=== PATIENT | male | born 1950 | race Hispanic/Latino ===

== ENCOUNTER 2016-11-16 19:22 | Emergency (ER) | payer MEDICARE, OTHER ==
[2016-11-16 19:22] VITALS: BMI 32.8
[2016-11-16 19:56] VITALS: BP 142/60; PULSE 72; RESP 20; TEMP 98.2; O2SAT 97
[2016-11-16] MEDS ORDERED: Bacitracin 500 Units/gm Oint Foilpak UD ONE (21:28)
[2016-11-16] MEDS ORDERED: Bacitracin 500 Units/gm Oint Foilpak UD TOP ONE (21:33)
--- NOTE | 2016-11-16 21:36 | C.PDOC ---
History Of Present Illness 66 yr old male presents to the ER with complaints of left 3rd finger swelling which started yesterday. Patient notes that he cut his nails last week and believes that started the swelling. Patient reports history of diabetes, reports no change in sugar level, reports average is 150. Patient took Motrin and tramadol for the pain [employer] DES[employer]. Patient denies direct trauma, fever, arm pain, hand pain, weakness or numbness. 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) History/Exam Limitations: language barrier (Brazilian ) Onset/Duration Of Symptoms: Days (1) Past Medical History Reviewed: Historical Data, Nursing Documentation, Vital Signs Vital Signs: Last Vital Signs Temp 98.2 F 11/16/16 19:54 Pulse 72 11/16/16 19:54 Resp 20 11/16/16 21:43 BP 142/60 11/16/16 19:54 Pulse Ox 97 11/16/16 21:47 - Medical History PMH: Diabetes, HTN, Hypercholesterolemia, Peripheral Edema, Seizures (does not remember), Sleep Apnea Family History: States: No Known Family Hx - Social History Hx Alcohol Use: No Hx Substance Use: No Review Of Systems Except As Marked, All Systems Reviewed And Found Negative. Constitutional: Negative for: Fever Musculoskeletal: Positive for: Other (Swelling to the left 3rd finger). Negative for: Arm Pain, Hand Pain Neurological: Negative for: Weakness, Numbness Physical Exam - Physical Exam Appears: Well, Non-toxic, No Acute Distress Skin: Warm, Dry Head: Atraumatic, Normacephalic Eye(s): bilateral: Normal Inspection, EOMI Nose: Normal Oral Mucosa: Moist Chest: Symmetrical, No Tenderness Respiratory: No Accessory Muscle Use Extremity: Normal ROM, Tenderness, Capillary Refill (<2 sec), Other (Left Hand, 3rd Finger - Swelling, erythema and tenderness to the ulnar aspect of the cuticle, central fluctuance. ) Pulses: Left Radial: Normal Neurological/Psych: Oriented x3, Normal Speech, Normal Motor, Normal Sensation ED Course And Treatment O2 Sat by Pulse Oximetry: 97 Progress Note: Patient instructed to follow up for a wound check up in 2 days. - Incision & Drainage Of Abscess Anesthesia: Lidocaine 1% Prep Used: Sterile Water, Betadine Procedure: Incised W/Scalpel Blade#: (11), Drained Pus (coopies amount of purulent drainage. ), Irrigated Cavity W/Saline Medical Decision Making Medical Decision Making: PLAN: * Keflex PO Disposition - Disposition Disposition: HOME/ ROUTINE Disposition Time: 21:34 Condition: STABLE Additional Instructions: Vaya a wright mdico o la clnica en 2-5 warren sin falta, para mas evaluacin. [employer] los medicamentos ibrahima indicado. Volver a la sky de emergencia en cualquier momento si los sntomas persisten o empeoran. Prescriptions: Bacitracin OINT 1 applic TP Q6 #1 tube Cephalexin [cephalexin] 500 mg PO BID #14 cap Instructions: Paronychia (ED) Print Language: JAPANESE - Clinical Impression Clinical Impression: Paronychia - PA / VP PRODUCT / Resident Statement MD/DO has reviewed & agrees with the documentation as recorded. - Scribe Statement The provider has reviewed the documentation as recorded by the Scribe Sharmila Lopez All medical record entries made by the Scribe were at my direction and personally dictated by me. I have reviewed the chart and agree that the record accurately reflects my personal performance of the history, physical exam, medical decision making, and the department course for this patient. I have also personally directed, reviewed, and agree with the discharge instructions and disposition.
== END 2016-11-16 21:43 | disposition home or self-care (01) ==
LOC: C.ER 19:22
DX: L03.012 Cellulitis of left finger (principal)

== ENCOUNTER 2017-06-06 20:52 | Inpatient (IN) | payer MEDICARE, OTHER ==
[2017-06-06 20:52] VITALS: BMI 32.8
--- NOTE | 2017-06-06 21:17 | C.PDOC ---
History Of Present Illness 66 year old male presents to the ER after feeling dizzy at home while eating and syncopized for approximately 3 minutes. Denies tremors or seizure activity. Patient reports dizziness has resolved since. Chief Complaint (Nursing): Dizziness/Lightheaded History Per: Patient History/Exam Limitations: no limitations Current Symptoms Are (Timing): Gone Number Of Syncopal Episodes: 1 Activity At Onset Of Symptoms: Walking Associated Symptoms Preceding Syncopal Episode: Lightheadedness, Other ( Dizziness) Seizure Or Post-ictal Symptoms: None Possible Causative Factor(s): Vertigo Fall Associated With With Symptoms: No Injury As Result Of Fall Severity: Moderate Pain Scale Rating Of: 0 Recent travel outside of the [place]: No Additional History Per: Patient - Symptoms Of CVA Associated Symptoms: denies: Impaired Speech, Seizure Activity, New Vision Deficit(Left), New Vision Deficit(Right), Decreased Ability To Walk, New Confusion Recent Aspirin Use: No Current Coumadin Use?: No Recent Head Trauma: No Past Medical History Reviewed: Historical Data, Nursing Documentation, Vital Signs Vital Signs: Last Vital Signs Temp 97.9 F 06/07/17 00:03 Pulse 81 06/07/17 00:03 Resp 22 06/07/17 00:03 BP 156/92 H 06/07/17 00:03 Pulse Ox 97 06/07/17 00:55 - Medical History PMH: Diabetes, HTN, Hypercholesterolemia, Peripheral Edema, Seizures (does not remember), Sleep Apnea Surgical History: No Surg Hx Family History: States: Unknown Family Hx - Social History Hx Alcohol Use: Yes Hx Substance Use: No - Immunization History Hx Tetanus Toxoid Vaccination: No Hx Influenza Vaccination: Yes Hx Pneumococcal Vaccination: Yes Review Of Systems Constitutional: Negative for: Fever, Chills Neurological: Positive for: Dizziness, Other (Syncope) Physical Exam - Physical Exam Appears: Non-toxic, No Acute Distress, Other (Alert, conscious) Skin: Normal Color, Warm, Dry Head: Atraumatic, Normacephalic Eye(s): bilateral: Normal Inspection, PERRL, EOMI Oral Mucosa: Moist Neck: Normal, Supple Chest: Symmetrical Cardiovascular: Rhythm Regular Respiratory: Normal Breath Sounds, No Rales, No Rhonchi, No Wheezing Gastrointestinal/Abdominal: Soft, No Tenderness Extremity: Normal ROM (x4) Neurological/Psych: Oriented x3, Normal Speech ED Course And Treatment - Laboratory Results Result Diagrams: 06/06/17 21:36 06/06/17 21:36 ECG: Interpreted By Me, Viewed By Me ECG Rhythm: Sinus Rhythm, ST/T Changes ECG Interpretation: No Acute Changes, Abnormal Interpretation Of ECG: NSR, IVCD< T wave abnormality-lateral leads Rate From EC O2 Sat by Pulse Oximetry: 97 Pulse Ox Interpretation: Normal Progress Note: CT head, EKG, blood work, and urinalysis ordered. NIHSS Stroke Scale - Date/Time Evaluation Performed Date Performed: 06/06/17 Time Performed: :17 When Was NIHSS Performed: Baseline - How Severe is the Stoke Level of Consciousness: 0=Alert LOC to Questions: 0=Both comments correct LOC to commands: 0=Obeys both correctly Best Gaze: 0=Normal Visual: 0=No visual loss Facial: 0=Normal Motor Arm - Left: 0=No drift Motor Arm - Right: 0=No drift Motor Leg - Left: 0=No drift Motor Leg - Right: 0=No drift Limb Ataxia: 0=Absent Sensory: 0=Normal Best Language: 0=No aphasia Dysarthia: 0=Normal articulation Extinction & Inattention (Neglect): 0=Normal, no object Score: 0 Severity Of Stroke: 0= No Stroke Disposition Discussed With : Santi Lisa Doctor Will See Patient In The: Hospital Counseled Patient/Family Regarding: Diagnosis - Disposition Disposition: HOME/ ROUTINE Disposition Time: 22:48 Condition: STABLE - POA Present On Arrival: None - Clinical Impression Clinical Impression: Syncope - Scribe Statement The provider has reviewed the documentation as recorded by the Scribjamila Pike All medical record entries made by the Jasonibjamila were at my direction and personally dictated by me. I have reviewed the chart and agree that the record accurately reflects my personal performance of the history, physical exam, medical decision making, and the department course for this patient. I have also personally directed, reviewed, and agree with the discharge instructions and disposition.
[2017-06-06 21:48] LABS: BASO # 0.1 K/uL (0.0-0.2); BASO % 0.9 % (0.0-2.0); EOS # 0.2 K/uL (0.0-0.7); EOS % 3.2 % (0.0-4.0); HEMATOCRIT 40.6 % (35.0-51.0); LYMPH # 1.8 K/uL (1.0-4.3); LYMPH % 28.8 % (20.0-40.0); MEAN CELL VOLUME 94.7 fL (80.0-94.0); MEAN CORPUSCULAR HGB CONC 33.7 g/dL (33.0-37.0); MEAN PLATELET VOLUME 8.8 fL (7.2-11.7); MONO # 0.5 K/uL (0.0-0.8); MONO % 8.9 % (0.0-10.0); NRBC % 0.2 % (0.0-2.0); WHITE BLOOD COUNT 6.2 K/uL (4.8-10.8)
[2017-06-06 22:03] LABS: CALCIUM 8.6 mg/dl (8.6-10.4); GFR AFRICAN-AMERICAN > 60; GLUCOSE,RANDOM 183 mg/dL (75-110)
[2017-06-06 22:08] LABS: ALB/GLOB RATIO 1.1 (1.0-2.1); ALKALINE PHOSPHATASE 57 U/L (38-126); ALT/SGPT 32 U/L (21-72); AST/SGOT 43 U/L (17-59); BILIRUBIN,TOTAL 1.1 mg/dL (0.2-1.3); BLOOD UREA NITROGEN 14 mg/dL (9-20); CARBON DIOXIDE 24 mmol/L (22-30); CHLORIDE 98 mmol/L (98-107); POTASSIUM 4.4 mmol/L (3.6-5.2); SODIUM 136 mmol/L (132-148); TOTAL PROTEIN 8.4 g/dL (6.3-8.3)
--- NOTE | 2017-06-06 22:28 | CT ---
EXAM: CT Head Without Intravenous Contrast CLINICAL HISTORY: 66 years old, male; Condition or disease; Headache; Headache not specified TECHNIQUE: Axial computed tomography images of the head/brain without intravenous contrast. All CT scans at this facility use one or more dose reduction techniques, viz.: automated exposure control; ma/kV adjustment per patient size (including targeted exams where dose is matched to indication; i.e. head); or iterative reconstruction technique. COMPARISON: No relevant prior studies available. FINDINGS: Brain: Mild atrophy. No intracranial hemorrhage. No mass. No definite edema. Ventricles: No hydrocephalus. Bones/joints: No acute fracture. Soft tissues: Unremarkable. Vasculature: Mild atherosclerotic disease of intracranial arteries. Sinuses: Postsurgical changes. Scattered minimal mucosal thickening. Mastoid air cells: No mastoid effusion. Orbits: Unremarkable as visualized. IMPRESSION: 1. No acute intracranial abnormality. 2. Incidental/non-acute findings are described above.
[2017-06-06 22:52] LABS: RBC URINE 1 /hpf (0-3); URINE BILIRUBIN NEGATIVE (NEGATIVE); URINE BLOOD 2+ (NEGATIVE); URINE COLOR Straw (YELLOW); URINE GLUCOSE (UA) NORMAL (Normal); URINE KETONE NEGATIVE (NEGATIVE); URINE LEUKOCYTE ESTERASE NEG Leu/uL (Negative); URINE PROTEIN NEGATIVE (NEGATIVE); URINE UROBILINOGEN NORMAL mg/dL (0.2-1.0); WBC URINE 1 /hpf (0-5)
--- NOTE | 2017-06-06 23:44 | CP.PCM.HP ---
<SaraYa Quin - Last Filed: 06/07/17 00:04> History of Present Illness - History of Present Illness History of Present Illness: Patient is a 66 y/o M with PMHx of CAD with open heart surgery, DM, HTN who presents today after a witnessed syncopal episode. Patient says he ate breakfast this morning (eggs, potatoes, salami), but did not have an appetite during the day. Patient only had juice and coffee during the day. At about 7pm patient had one beer. At about 8pm patient sat down to have dinner with his son. After a few bites of dinner, he got up to go to the bathroom and noticed he was dizzy. On the way back from the bathroom he had a syncopal episode and fell to the floor onto his back hitting the right side of his head on the wall. Son saw him fall and said he was unconscious for 1-3 minutes. There was no shaking or seizure activity seen. Patient did not remember what happened, but was not confused after he woke up. Patient had no slurring of words. Sons brought him to the hospital after this episode. Patient says this happened once in the past about a year ago and he believes it was from not eating enough. Currently patient says he feels back to baseline. He has no headache, blurry or double vision, dizziness, lightheadedness, shortness of breath, chest pain, abdominal pain, nausea, vomiting, diarrhea, or constipation. PMD: Dr. Aguayo Pmhx: DM, HTN, CAD Psurg: open heart surgery 2014, cataract surgery b/l Famhx: mom: DM Social: 2 beers once and week and holidays, stopped smoking 5 years ago-- previously 2 cigarettes per day for about 18 years, denies drugs Home medications: Nuvigil 250mg po tab, ASA 81mg po daily, Enalapril 20mg po daily, Metformin 500mg po BID, Metoprolol Succinate 50mg po daily sometimes takes percocet to help him sleep (took one last night), unknown medication for memory Present on Admission - Present on Admission Any Indicators Present on Admission: No History of DVT/PE: No History of Uncontrolled Diabetes: No Urinary Catheter: No Decubitus Ulcer Present: No Review of Systems - Constitutional Constitutional: absent: Fatigue, Headache - EENT Eyes: absent: Blurred Vision, Change in Vision, Diplopia - Cardiovascular Cardiovascular: Syncope. absent: Chest Pain, Diaphoresis, Dyspnea, Leg Edema, Palpitations - Respiratory Respiratory: absent: Dyspnea, Wheezing, Stridor - Gastrointestinal Gastrointestinal: absent: Abdominal Pain, Constipation, Diarrhea, Nausea, Vomiting - Genitourinary Genitourinary: absent: Difficulty Urinating - Musculoskeletal Musculoskeletal: absent: Numbness, Tingling - Integumentary Integumentary: absent: Rash - Neurological Neurological: absent: Dizziness, Headaches - Hematologic/Lymphatic Hematologic: absent: Easy Bleeding, Easy Bruising Past Patient History - Past Medical History & Family History Past Medical History?: Yes - Past Social History Smoking Status: Never Smoked - CARDIAC Hx Hypercholesterolemia: Yes Hx Hypertension: Yes Hx Peripheral Edema: Yes - PULMONARY Hx Sleep Apnea: Yes - NEUROLOGICAL Hx Seizures: Yes (does not remember) - HEENT Hx HEENT Problems: Yes Hx Cataracts: Yes (bilat iol) - RENAL Hx Chronic Kidney Disease: No - ENDOCRINE/METABOLIC Hx Endocrine Disorders: Yes Hx Diabetes Mellitus Type 2: Yes - HEMATOLOGICAL/ONCOLOGICAL Hx Blood Disorders: Yes - INTEGUMENTARY Hx Dermatological Problems: No - MUSCULOSKELETAL/RHEUMATOLOGICAL Hx Musculoskeletal Disorders: Yes Hx Osteoarthritis: Yes - GASTROINTESTINAL Hx Gastrointestinal Disorders: No - GENITOURINARY/GYNECOLOGICAL Hx Genitourinary Disorders: No - PSYCHIATRIC Hx Substance Use: No - SURGICAL HISTORY Hx Surgeries: Yes Hx Cataract Extraction: Yes Hx Cardiac Catheterization: Yes (5 yrs ago) Hx Open Heart Surgery: Yes (2013) - ANESTHESIA Hx Anesthesia: Yes Hx Anesthesia Reactions: No Hx Malignant Hyperthermia: No Meds Allergies/Adverse Reactions: Allergies Allergy/AdvReac Type Severity Reaction Status Date / Time No Known Allergies Allergy Verified 06/06/17 21:02 Physical Exam - Constitutional Appears: Well, Non-toxic, No Acute Distress - Head Exam Head Exam: ATRAUMATIC, NORMAL INSPECTION, NORMOCEPHALIC - Eye Exam Eye Exam: Normal appearance Additional comments: h/x b/l cataract surgery - Respiratory Exam Respiratory Exam: Clear to Auscultation Bilateral, NORMAL BREATHING PATTERN. absent: Rales, Rhonchi, Wheezes, Respiratory Distress, Stridor - GI/Abdominal Exam GI & Abdominal Exam: Normal Bowel Sounds, Soft - Extremities Exam Extremities exam: Positive for: normal inspection. Negative for: pedal edema, tenderness - Neurological Exam Neurological exam: Alert, Oriented x3 - Psychiatric Exam Psychiatric exam: Normal Affect, Normal Mood - Skin Skin Exam: Intact, Normal Color, Warm Results - Vital Signs Recent Vital Signs: Last Vital Signs Temp 98.0 F 06/06/17 20:58 Pulse 77 06/06/17 22:22 Resp 20 06/06/17 22:22 BP 163/93 H 06/06/17 22:22 Pulse Ox 97 06/06/17 22:48 - Labs Result Diagrams: 06/06/17 21:36 06/06/17 21:36 Labs: Laboratory Results - last 24 hr 06/06/17 06/06/17 06/06/17 21:36 21:36 22:45 WBC 6.2 RBC 4.28 L Hgb 13.7 Hct 40.6 MCV 94.7 H MCH 32.0 H MCHC 33.7 RDW 13.0 Plt Count 179 MPV 8.8 Neut % (Auto) 58.2 Lymph % (Auto) 28.8 [place] % (Auto) 8.9 Eos % (Auto) 3.2 Baso % (Auto) 0.9 Neut # 3.6 Lymph # 1.8 [place] # 0.5 Eos # 0.2 Baso # 0.1 Sodium 136 Potassium 4.4 Chloride 98 Carbon Dioxide 24 Anion Gap 19 BUN 14 Creatinine 0.9 Est GFR ( Amer) > 60 Est GFR (Non-Af Amer) > 60 Random Glucose 183 H Calcium 8.6 Total Bilirubin 1.1 AST 43 ALT 32 Alkaline Phosphatase 57 Troponin I 0.0390 Total Protein 8.4 H Albumin 4.5 Globulin 3.9 Albumin/Globulin Ratio 1.1 Urine Color Straw Urine Clarity Clear Urine pH 6.0 Ur Specific [place] 1.004 Urine Protein Negative Urine Glucose (UA) Normal Urine Ketones Negative Urine Blood 2+ H Urine Nitrate Negative Urine Bilirubin Negative Urine Urobilinogen Normal Ur Leukocyte Esterase Neg Urine WBC (Auto) 1 Urine RBC (Auto) 1 Ur Squamous Epith Cells < 1 Assessment & Plan - Assessment and Plan (Free Text) Assessment: Syncopal episode -Head CT: no acute intracranial abnormality -orthostatic vital signs WNL -f/u UDS -f/u ECHO -f/u carotid dopplers -f/u MRI -fall precautions Dehydration -NS @ 100 cc/hr Hx DM -continue Metformin 500 mg BID -accuchecks q6h HTN -continue Enalapril 20 mg po daily, Toprol Xl 50 mg po daily Hx CAD -continue ASA 81mg po daily Prophylaxis -DVT: SCDs, hold chemical prophylaxis s/p fall -GI: Pepcid 20mg po daily <Santi Lisa - Last Filed: 06/07/17 06:17> Results - Vital Signs Recent Vital Signs: Last Vital Signs Temp 98.2 F 06/07/17 01:40 Pulse 65 06/07/17 01:40 Resp 20 06/07/17 01:40 BP 149/82 06/07/17 01:40 Pulse Ox 97 06/07/17 01:40 - Labs Result Diagrams: 06/06/17 21:36 06/06/17 21:36 Labs: Laboratory Results - last 24 hr 06/06/17 06/06/17 06/06/17 21:36 21:36 22:45 WBC 6.2 RBC 4.28 L Hgb 13.7 Hct 40.6 MCV 94.7 H MCH 32.0 H MCHC 33.7 RDW 13.0 Plt Count 179 MPV 8.8 Neut % (Auto) 58.2 Lymph % (Auto) 28.8 [place] % (Auto) 8.9 Eos % (Auto) 3.2 Baso % (Auto) 0.9 Neut # 3.6 Lymph # 1.8 [place] # 0.5 Eos # 0.2 Baso # 0.1 Sodium 136 Potassium 4.4 Chloride 98 Carbon Dioxide 24 Anion Gap 19 BUN 14 Creatinine 0.9 Est GFR ( Amer) > 60 Est GFR (Non-Af Amer) > 60 Random Glucose 183 H Calcium 8.6 Total Bilirubin 1.1 AST 43 ALT 32 Alkaline Phosphatase 57 Troponin I 0.0390 Total Protein 8.4 H Albumin 4.5 Globulin 3.9 Albumin/Globulin Ratio 1.1 Urine Color Straw Urine Clarity Clear Urine pH 6.0 Ur Specific [place] 1.004 Urine Protein Negative Urine Glucose (UA) Normal Urine Ketones Negative Urine Blood 2+ H Urine Nitrate Negative Urine Bilirubin Negative Urine Urobilinogen Normal Ur Leukocyte Esterase Neg Urine WBC (Auto) 1 Urine RBC (Auto) 1 Ur Squamous Epith Cells < 1 Assessment & Plan - Date & Time Date: 06/07/17 (I have seen and examined the patient. I agree with the findings and plan of care as documented by Dr. Ruiz. Patient with syncopal episode. CT head negative. Check 2D Echo, carotid doppler, and MRI brain in AM. Also with history of diabetes and hypertension. Continue home meds. Monitor vitals and Blood sugars for abrupt changes. Observe while on tele for acute changes.) Time: 06:15 Attending/Attestation - Attestation I have personally seen and examined this patient.: Yes I have fully participated in the care of the patient.: Yes I have reviewed all pertinent clinical information: Yes
[2017-06-07 06:39] LABS: BASO % 0.7 % (0.0-2.0); EOS # 0.3 K/uL (0.0-0.7); EOS % 4.4 % (0.0-4.0); HEMATOCRIT 39.2 % (35.0-51.0); LYMPH # 2.1 K/uL (1.0-4.3); LYMPH % 35.1 % (20.0-40.0); MEAN CELL VOLUME 94.6 fL (80.0-94.0); MEAN CORPUSCULAR HEMOGLOBIN 32.1 pg (27.0-31.0); MEAN PLATELET VOLUME 8.8 fL (7.2-11.7); MONO # 0.7 K/uL (0.0-0.8); NRBC % 0.1 % (0.0-2.0); WHITE BLOOD COUNT 5.9 K/uL (4.8-10.8)
--- NOTE | 2017-06-07 07:32 | CP.PCM.PN ---
<Shonda Marroquin - Last Filed: 06/07/17 19:48> Subjective - Date & Time of Evaluation Date of Evaluation: 06/07/17 Time of Evaluation: 07:00 - Subjective Subjective: Patient was seen and examined at bedside in the AM. Patient states he is feeling well. He states he passed out because of his diabetes if he doesn't eat on time he gets light headed and faints. Patient denies chest pain, shortness of breath, difficulty breathing, nausea, vomiting, diarrhea or constipation. Objective - Vital Signs/Intake and Output Vital Signs (last 24 hours): Temp Pulse Resp BP Pulse Ox 98.2 F 82 20 162/64 H 97 06/07/17 01:40 06/07/17 06:00 06/07/17 01:40 06/07/17 06:00 06/07/17 01:40 Intake and Output: 06/07/17 06/07/17 06:59 18:59 Intake Total 640 Balance 640 - Medications Medications: Current Medications Aspirin (Ecotrin) 81 mg PO DAILY [facility] Enalapril Maleate (Vasotec) 20 mg PO DAILY [facility] Famotidine (Pepcid) 20 mg PO DAILY [facility] Sodium Chloride (Sodium Chloride 0.9%) 1,000 mls @ 100 mls/hr IV .Q10H [facility] Metformin HCl (Glucophage Xr) 500 mg PO BID [facility] Metoprolol Succinate (Toprol Xl) 50 mg PO DAILY [facility] - Labs Labs: 06/07/17 06:28 06/06/17 21:36 - Constitutional Appears: No Acute Distress - Head Exam Head Exam: ATRAUMATIC, NORMAL INSPECTION - Eye Exam Eye Exam: EOMI, Normal appearance - ENT Exam ENT Exam: Mucous Membranes Moist - Respiratory Exam Respiratory Exam: Clear to Ausculation Bilateral, NORMAL BREATHING PATTERN. absent: Rales, Rhonchi, Wheezes, Stridor - Cardiovascular Exam Cardiovascular Exam: REGULAR RHYTHM, RRR, +S1, +S2 - GI/Abdominal Exam GI & Abdominal Exam: Soft, Normal Bowel Sounds. absent: Tenderness - Extremities Exam Extremities Exam: Normal Inspection. absent: Pedal Edema, Tenderness - Neurological Exam Neurological Exam: Alert, Awake, Oriented x3 - Psychiatric Exam Psychiatric exam: Normal Affect, Normal Mood - Skin Skin Exam: Normal Color, Warm Assessment and Plan - Assessment and Plan (Free Text) Assessment: 1.) Syncopal episode possibly due to hypoglycemia vs. Cocaine use - Head CT (06/06/17): No acute intracranial abnormality - Orthostatic vital signs WNL - UDS: + Cocaine - f/u ECHO - f/u carotid dopplers - f/u MRI - 0.5mg of Ativan ordered for MRI patient states he feels claustrophobic - ZABRINA: x2 negative - f/u ZABRINA & EKG - EKG Normal Sinus Rhythm - D-dimer: <200 2 .) + UDS - + Cocaine - Spoke with patient about the positive UDS and he stated it was + because he sometimes takes percocet and I explained to the patient that those are 2 different chemicals and he did not confess nor did he deny cocaine use. Later in the afternoon as per my attending, Dr. Chapman did speak with the patient and he stated he was feeling down and did use cocaine. - ZABRINA: x2 negative - f/u ZABRINA - EKG Normal Sinus Rhythm 3.) History of DM - Continue Metformin 500 mg BID - Accuchecks q6h 4.) History of HTN - Enalapril 20 mg PO daily - Toprol Xl 50 mg PO daily - discontinued due to + Cocaine in UDS 5.) History of CAD -continue ASA 81mg po daily 6.) Dehydration - resolved - NS @ 100 cc/hr - discontinued 7.) Prophylaxis - SCDs - Heparin SC daily - Pepcid 20mg po daily - Fall precautions Case discussed with Dr. Ari Marroquin PGY-1 <Mini Chapman V - Last Filed: 06/08/17 21:48> Objective - Vital Signs/Intake and Output Vital Signs (last 24 hours): Temp Pulse Resp BP Pulse Ox 97.9 F 63 20 127/77 97 06/07/17 15:28 06/07/17 16:12 06/07/17 15:28 06/07/17 15:28 06/07/17 15:28 Intake and Output: 06/07/17 06/07/17 06:59 18:59 Intake Total 640 Balance 640 - Medications Medications: Current Medications Aspirin (Ecotrin) 81 mg PO DAILY [facility] Last Admin: 06/07/17 09:38 Dose: 81 mg Enalapril Maleate (Vasotec) 20 mg PO DAILY [facility] Last Admin: 06/07/17 09:38 Dose: 20 mg Famotidine (Pepcid) 20 mg PO DAILY [facility] Last Admin: 06/07/17 09:38 Dose: 20 mg Heparin Sodium (Porcine) (Heparin) 5,000 units SC Q8 [facility] Last Admin: 06/07/17 15:00 Dose: 5,000 units Lorazepam (Ativan) 0.5 mg IVP ONCE ONE Stop: 06/08/17 10:01 Metformin HCl (Glucophage Xr) 500 mg PO BID [facility] Last Admin: 06/07/17 13:43 Dose: 500 mg - Labs Labs: 06/07/17 06:28 06/07/17 06:28 Attending/Attestation - Attestation I have personally seen and examined this patient.: Yes I have fully participated in the care of the patient.: Yes I have reviewed all pertinent clinical information, including history, physical exam and plan: Yes Notes (Text): This is a late computer entry for 06/07/17. Patient seen, examined, and case discussed with day-time resident. Patient seen at bedside this afternoon. patient reports he is feeling good. Denies headache, denies dizziness, denies shortness of breathe, denies cough, denies abdominal pain, denies nausea, denies vomitting, denies problems with bowel nor bladder. When my resident saw him earlier, patient did not admit to his cocaine use; reports he use Percocet. When I saw him, I explained to him that result showed he used cocaine, and reports he had received it from a friend, and does not use it every day. I explained to the patient that he will worsen his heart problems given he is patient who has needed open heart surgery and people from cocaine use even if its one time. Given the holiday, patient is unable to receive his echocardiogram, cartoid, nor MRI given those respective departments are closed on . patient is aware and is willing to wait to complete these exams. Assessment/Plan 1) Syncopal episode * Monitor on telemetry * Head CT: no acute intracranial abnormality * orthostatic vital signs WNL * Positive for cocaine use-->discontinue beta john in light of cocaine use * pending ECHO, carotid dopplers, and Brain MRI * fall precautions * Given the , patient is unable to receive his echocardiogram, cartoid, nor MRI given those respective departments are closed on Thanksgiving. patient is aware and is willing to wait to complete these exams. 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
[2017-06-07 07:57] LABS: ALB/GLOB RATIO 1.3 (1.0-2.1); ALKALINE PHOSPHATASE 60 U/L (38-126); ALT/SGPT 37 U/L (21-72); AST/SGOT 29 U/L (17-59); BILIRUBIN,TOTAL 0.7 mg/dL (0.2-1.3); BLOOD UREA NITROGEN 16 mg/dL (9-20); CALCIUM 8.6 mg/dl (8.6-10.4); CARBON DIOXIDE 30 mmol/L (22-30); CHLORIDE 99 mmol/L (98-107); GFR AFRICAN-AMERICAN > 60; GLUCOSE,RANDOM 149 mg/dL (75-110); MAGNESIUM 1.9 mg/dL (1.6-2.3); PHOSPHOROUS 3.8 mg/dL (2.5-4.5); POTASSIUM 3.9 mmol/L (3.6-5.2); SODIUM 138 mmol/L (132-148); TOTAL PROTEIN 6.5 g/dL (6.3-8.3)
[2017-06-07] MEDS ORDERED: Metoprolol Succinate 50 mg XL Tab PO SCH (10:00)
[2017-06-07] MEDS: Sodium Chloride 0.9% 1,000 ML IV SCH ×2 (14:43→16:05)
[2017-06-07 14:58] LABS: TROPONIN I 0.028 ng/mL (0.00-0.120)
[2017-06-07 20:03] LABS: TROPONIN I 0.033 ng/mL (0.00-0.120)
[2017-06-08 06:56] LABS: BASO % 0.6 % (0.0-2.0); EOS # 0.3 K/uL (0.0-0.7); EOS % 5.6 % (0.0-4.0); HEMATOCRIT 40.3 % (35.0-51.0); LYMPH # 1.8 K/uL (1.0-4.3); LYMPH % 35.9 % (20.0-40.0); MEAN CELL VOLUME 95.1 fL (80.0-94.0); MEAN CORPUSCULAR HEMOGLOBIN 32.6 pg (27.0-31.0); MEAN CORPUSCULAR HGB CONC 34.2 g/dL (33.0-37.0); MEAN PLATELET VOLUME 10.1 fL (7.2-11.7); MONO # 0.4 K/uL (0.0-0.8); MONO % 8.5 % (0.0-10.0); NRBC % 0.1 % (0.0-2.0); RED CELL DISTRIBUTION WIDTH 13.3 % (11.5-14.5)
--- NOTE | 2017-06-08 07:21 | CP.PCM.PN ---
<Violetta Villatoro - Last Filed: 06/08/17 14:21> Subjective - Date & Time of Evaluation Date of Evaluation: 06/08/17 Time of Evaluation: 07:21 - Subjective Subjective: Medicine Progress Note for Dr. Chapman Patient was seen and examined at bedside in no acute distress. Patient reports feeling well and has no complaints today. Patient reports he has normal bowel movements, sleeping well, and eating well. Patient denies having chest pain, palpitations, shortness of breath, abdominal pain, nausea, vomiting, fevers, headaches, and dizziness. Objective - Vital Signs/Intake and Output Vital Signs (last 24 hours): Temp Pulse Resp BP Pulse Ox 98.1 F 60 18 148/86 98 06/08/17 04:20 06/08/17 04:20 06/08/17 04:20 06/08/17 04:20 06/08/17 04:20 Intake and Output: 06/08/17 06/08/17 06:59 18:59 Intake Total 150 Output Total 500 Balance -350 - Medications Medications: Current Medications Aspirin (Ecotrin) 81 mg PO DAILY [facility] Last Admin: 06/07/17 09:38 Dose: 81 mg Enalapril Maleate (Vasotec) 20 mg PO DAILY [facility] Last Admin: 06/07/17 09:38 Dose: 20 mg Famotidine (Pepcid) 20 mg PO DAILY [facility] Last Admin: 06/07/17 09:38 Dose: 20 mg Heparin Sodium (Porcine) (Heparin) 5,000 units SC Q8 [facility] Last Admin: 06/08/17 05:54 Dose: 5,000 units Lorazepam (Ativan) 0.5 mg IVP ONCE ONE Stop: 06/08/17 10:01 Metformin HCl (Glucophage Xr) 500 mg PO BID [facility] Last Admin: 06/07/17 17:15 Dose: 500 mg - Labs Labs: 06/08/17 06:25 06/07/17 06:28 - Constitutional Appears: No Acute Distress - Head Exam Head Exam: ATRAUMATIC, NORMAL INSPECTION - Eye Exam Eye Exam: EOMI, Normal appearance - ENT Exam ENT Exam: Mucous Membranes Moist - Respiratory Exam Respiratory Exam: Clear to Ausculation Bilateral, NORMAL BREATHING PATTERN. absent: Rales, Rhonchi, Wheezes, Respiratory Distress - Cardiovascular Exam Cardiovascular Exam: +S1, +S2, Murmur - GI/Abdominal Exam GI & Abdominal Exam: Soft, Normal Bowel Sounds. absent: Distended, Firm, Tenderness, Mass - Extremities Exam Extremities Exam: Normal Inspection. absent: Pedal Edema, Tenderness - Neurological Exam Neurological Exam: Alert, Normal Gait, Oriented x3 - Psychiatric Exam Psychiatric exam: Normal Affect, Normal Mood - Skin Skin Exam: Dry, Intact, Normal Color, Warm Assessment and Plan (1) Syncope Status: Acute (2) Cocaine use Status: Acute (3) Diabetes Status: Acute (4) HTN (hypertension) Status: Acute (5) CAD (coronary artery disease) Status: Acute (6) Dehydration Status: Acute (7) Prophylactic measure Status: Acute - Assessment and Plan (Free Text) Plan: (1) Syncope possibly due to hypoglycemia vs. Cocaine use - Head CT (06/06/17): No acute intracranial abnormality - Orthostatic vital signs WNL - UDS: + Cocaine - f/u ECHO - Carotid dopplers: right & left- does not suggest hemodynamically significant stenosis - Brain MRI: no acute intracranial hemorrhage or infarct. Minimal chronic white matter ischemic changes; mild age-appropriate ischemic changes - 0.5mg of Ativan ordered for MRI patient states he feels claustrophobic - CXR (portable): central pulmonary vascular congestion; r/o developing or mild chronic compensated pulmonary edema/CHF; questionable tiny b/l effusions right> left. - CXR (PA/Lat): f/u results - ZABRINA: x3 negative - EKG Normal Sinus Rhythm - D-dimer: <200 - Cardiology consulted- Dr. Nava, help appreciated - If heart rate >100, can consider starting Cardizem. - TSH, Free T4: f/u results (2) Cocaine use - + Cocaine - ZABRINA: x3 negative - EKG Normal Sinus Rhythm - Avoidance of cocaine, tobacco, and alcohol were discussed at length with the patient. Also discussed importance of avoiding combination of beta blockers and cocaine with patient. (3) Diabetes - Continue Metformin 500 mg BID - Accuchecks q6h (4) HTN (hypertension) - Enalapril 20 mg PO daily - Toprol Xl 50 mg PO daily - discontinued due to + Cocaine in UDS (5) CAD (coronary artery disease) - Continue ASA 81mg po daily (6) Dehydration - NS @ 100 cc/hr - discontinued (7) Prophylactic measure - SCDs - Heparin SC daily - Pepcid 20mg po daily - Fall precautions - Heart Healthy diet <Mini Chapman V - Last Filed: 06/08/17 22:03> Objective - Vital Signs/Intake and Output Vital Signs (last 24 hours): Temp Pulse Resp BP Pulse Ox 98.1 F 64 20 139/76 99 06/08/17 15:25 06/08/17 16:00 06/08/17 15:25 06/08/17 15:25 06/08/17 15:25 Intake and Output: 06/08/17 06/09/17 18:59 06:59 Intake Total 600 Balance 600 - Medications Medications: Current Medications Aspirin (Ecotrin) 81 mg PO DAILY [facility] Last Admin: 06/08/17 10:24 Dose: 81 mg Enalapril Maleate (Vasotec) 20 mg PO DAILY [facility] Last Admin: 06/08/17 10:24 Dose: 20 mg Famotidine (Pepcid) 20 mg PO DAILY [facility] Last Admin: 06/08/17 10:24 Dose: 20 mg Furosemide (Lasix) 40 mg PO DAILY [facility] Heparin Sodium (Porcine) (Heparin) 5,000 units SC Q8 [facility] Last Admin: 06/08/17 21:36 Dose: 5,000 units Metformin HCl (Glucophage Xr) 500 mg PO BID [facility] Last Admin: 06/08/17 18:51 Dose: 500 mg Rosuvastatin Calcium (Crestor) 10 mg PO HS [facility] - Labs Labs: 06/08/17 06:25 06/08/17 06:25 Attending/Attestation - Attestation I have personally seen and examined this patient.: Yes I have fully participated in the care of the patient.: Yes I have reviewed all pertinent clinical information, including history, physical exam and plan: Yes Notes (Text): Patient seen, examined, and case discussed with day-time resident. patient seen at bedside this morning. patient denies acute complaints. I explained again to the patient that it is extremely to not use cocaine ever, that people from use from cocaine and especially in light of his heart history he should never take this drug. Patient verbalized understanding and agrees. 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 Estrada. Dr. Estrada does not come to this hospital, his colleague, Dr. Elijah feliz. Will seek out cardiology evaluation in light of cardiac hx, recent cocaine use, and d/c beta john. Portable chest xray appears abnormal; official report reveals central pulmonary vasculature appears slightly congested. Rule out developing or mild chronic compensated pulmonary edema/CHF. Questionable tiny bilateral effusions right larger than left; repeat Chest PA and Lateral ordered which showed mild to moderate pulmonary venous congestion. Marked cardiomegaly. Patient ordered for stat Lasix 40mg IV. start on Lasix 40mg PO daily tomorrow. Diet adjusted with fluid restriction. Patient went for his Brain MRI, echocardiogram, and carotid doppler today Patient status changed to inpatient given patient had several tests to complete today Assessment/Plan 1) Syncopal episode * Monitor on telemetry * Head CT: no acute intracranial abnormality * orthostatic vital signs WNL * Positive for cocaine use-->discontinue beta john in light of cocaine use * fall precautions * D-dimer: negative-->low suspicion for PE * Carotid dopplers: right & left- does not suggest hemodynamically significant stenosis * Brain MRI: no acute intracranial hemorrhage or infarct. Minimal chronic white matter ischemic changes; mild age-appropriate ischemic changes * ZABRINA: x3 negative * pending official echocardiogram report * Cardiology consulted- Dr. Nava, help appreciated - If heart rate >100, can consider starting Cardizem. * TSH, Free T4: within normal 2) Dehydration-->resolved * d/c fluids; patient appears well-hydrated 3) Diabetes * continue Metformin 500 mg BID * accuchecks QACHS * Order for A1c, Lipid panel 4) Hypertension * continue Enalapril 20 mg po daily * d/c Toprol Xl 50 mg po daily in light of cocaine use * Cardiology consulted- Dr. Nava, help appreciated - If heart rate >100, can consider starting Cardizem. * Patient given dose of Laxis 40mg IV X1 given chest xray result showing congestion; start lasix 40mg PO daily 5) Hx CAD; hx of open heart surgery * Cardiology (Dr. Nava who covers for patient's spiral tube winder, Dr Estrada) help appreciated * If heart rate >100, can consider starting Cardizem. * continue ASA 81mg po daily * continue Enalapril 20 mg po daily * d/c Toprol Xl 50 mg po daily in light of cocaine use * Start Crestor 10mg POqHS given heart history * Diet adjusted for fluid restriction * pending official echocardiogram report 6)Cocaine Use * monitor on telemetry * ROMIs and f/u EKGs * D/C Beta-john * I strongly educated the patient at bedside in regards to cocaine, tobacco, and alcohol were discussed at length with the patient especially in light of his cardiac history. Also discussed importance of avoiding combination of beta blockers and cocaine with patient. 7)Prophylaxis * DVT: SCDs, Heparin 5000 units subq 8Hs * GI: Pepcid 20mg po daily Disposition: Patient changed to inpatient given he would need to go for exams; brain mri, echo, carotid doppler and cardiology consult. Pending results and cardiology evaluation to determine discharge planning
[2017-06-08 07:44] LABS: ALB/GLOB RATIO 1.3 (1.0-2.1); ALKALINE PHOSPHATASE 67 U/L (38-126); ALT/SGPT 38 U/L (21-72); AST/SGOT 28 U/L (17-59); BILIRUBIN,TOTAL 0.5 mg/dL (0.2-1.3); BLOOD UREA NITROGEN 22 mg/dL (9-20); CALCIUM 8.4 mg/dl (8.6-10.4); CARBON DIOXIDE 29 mmol/L (22-30); CHLORIDE 100 mmol/L (98-107); GFR AFRICAN-AMERICAN > 60; GLUCOSE,RANDOM 152 mg/dL (75-110); MAGNESIUM 1.7 mg/dL (1.6-2.3); PHOSPHOROUS 3.4 mg/dL (2.5-4.5); POTASSIUM 4.5 mmol/L (3.6-5.2); SODIUM 135 mmol/L (132-148); TOTAL PROTEIN 6.1 g/dL (6.3-8.3)
--- NOTE | 2017-06-08 12:00 | MRI ---
PROCEDURE: MRI brain dated 06/08/2017 HISTORY: Syncopal episode, s/p fall COMPARISON: Comparison made with CT scan brain 06/06/2027 TECHNIQUE: Multiplanar, multisequence MR images of the brain were obtained without intravenous contrast enhancement. FINDINGS: HEMORRHAGE: No acute parenchymal, subarachnoid nor extra-axial hemorrhage. No obvious hemosiderin deposition is identified on gradient echo weighted sequence. DWI: No evidence of an acute or early subacute infarction seen on diffusion imaging. BRAIN PARENCHYMA: There are multiple very tiny focal areas of increased T2 signal seen scattered about the deep and subcortical white matter both cerebral hemispheres most likely representing tiny chronic lacunar type infarcts. Additionally, there appears to be some very minimal slightly confluent prolonged T2 signal changes in the periventricular white matter also felt to represent chronic of small vessel disease. No obvious parenchymal nor extra-axial mass collection seen on this study. Noncontrast Mild age-appropriate volume loss evidenced by enlargement of the ventricles and sulci. VENTRICLES: No obstructive hydrocephalus. CRANIUM: No acute calvarial fractures. ORBITS: Re- demonstrated are changes of bilateral cataract surgery. Orbits and contents otherwise grossly unremarkable PARANASAL SINUSES/MASTOIDS: Frontal sinuses hypoplastic although there is some very minimal mucosal thickening seen in the left aspect of the frontal sinus. VASCULAR SYSTEM: Visualized major vascular flow voids at skull base are patent. OTHER FINDINGS: None. IMPRESSION: No acute intracranial hemorrhage or infarct. Minimal chronic white matter ischemic changes. Mild age-appropriate volume loss.
--- NOTE | 2017-06-08 12:10 | RAD ---
HISTORY: Cardiac history COMPARISON: No prior. FINDINGS: LUNGS: Central pulmonary vasculature appears slightly congested. Rule out developing or mild chronic compensated pulmonary edema/ CHF. Questionable tiny bilateral effusions right larger than left PLEURA: As above. No apparent pneumothorax. CARDIOVASCULAR: Sternotomy wires and CABG clips again noted. Heart remains enlarged. OSSEOUS STRUCTURES: No significant abnormalities. VISUALIZED UPPER ABDOMEN: Normal. OTHER FINDINGS: None. IMPRESSION: Central pulmonary vasculature appears slightly congested. Rule out developing or mild chronic compensated pulmonary edema/ CHF. Questionable tiny bilateral effusions right larger than left
--- NOTE | 2017-06-08 13:19 | VASCLAB ---
PROCEDURE: HISTORY: syncope COMPARISON: None available. TECHNIQUE: Grayscale and duplex Doppler evaluation of the cervical carotid and vertebral arteries were performed. The common carotid, carotid bifurcations and cervical Internal Carotid Artery (ICA) and proximal External Carotid Artery (ECA) were evaluated. The vertebral arteries were evaluated for gross patency and flow direction. Report prepared by Jose Dooley, BS, RVT FINDINGS: RIGHT CAROTID ARTERIES: 1. Common Carotid Artery: No significant focal plaque formation of the right common carotid artery. Maximum Peak Systolic velocity: 89 cm/sec: End-diastolic velocity 14 cm/sec. 2. Carotid Bifurcation: Calcific and noncalcific plaque formation. Maximum Peak Systolic velocity: 65 cm/sec: End-diastolic velocity 19 cm/sec. 3. Internal Carotid Artery: Minimal plaque formation of the right proximal ICA which does not result in hemodynamically significant stenosis. Plaque description: Heterogeneous 3.1. Proximal Segment: Peak systolic velocity 82 cm/sec: End-diastolic velocity 22 cm/sec - % stenosis 0-15% 3.2. Middle Segment: Peak systolic velocity 70 cm/sec: End-diastolic velocity 30 cm/sec - % stenosis 0-15% 3.3. Distal Segment: Peak systolic velocity 64 cm/sec: End-diastolic velocity 23 cm/sec - % stenosis 0-15% 4. External Carotid Artery: No significant focal plaque formation. Peak systolic velocity 122 cm/sec 5. ICA/CCA Ratio: 1.1 LEFT CAROTID ARTERIES: 1. Common Carotid Artery: No significant focal plaque formation of the left common carotid artery. Maximum Peak Systolic velocity: 76 cm/sec: End-diastolic velocity 104 28 cm/sec. 2. Carotid Bifurcation: Calcific and noncalcific plaque formation. Maximum Peak Systolic velocity: 76 cm/sec: End-diastolic velocity 24 cm/sec. 3. Internal Carotid Artery: Minimal plaque formation of the left proximal ICA which does not result in hemodynamically significant stenosis. Plaque description: Calcific 3.1. Proximal Segment: Peak systolic velocity 81 cm/sec: End-diastolic velocity 30 cm/sec - % stenosis 0-15% 3.2. Middle Segment: Peak systolic velocity 81 cm/sec: End-diastolic velocity 30 cm/sec - % stenosis 0-15% 3.3. Distal Segment: Peak systolic velocity 78 cm/sec: End-diastolic velocity 31 cm/sec - % stenosis 0-15% 4. External Carotid Artery: No significant focal plaque formation. Peak systolic velocity 170 cm/sec 5. ICA/CCA Ratio: 1.1 VERTEBRAL ARTERIES: 1. Right Vertebral Artery: The right vertebral artery flow direction is antegrade. 2. Left Vertebral Artery: The left vertebral artery flow direction is antegrade. OTHER FINDINGS: 1. Right Brachial Blood pressure: 130 mmHg. 2. Left Brachial Blood pressure: 134 mmHg. IMPRESSION: RIGHT: Duplex scan does not suggest hemodynamically significant stenosis of the right extracranial carotid arteries. LEFT: Duplex scan does not suggest hemodynamically significant stenosis of the left extracranial carotid arteries.
--- NOTE | 2017-06-08 14:52 | RAD ---
HISTORY: abnormal chest xray COMPARISON: Chest x-ray performed 06/08/17 TECHNIQUE: Chest PA and lateral FINDINGS: LUNGS: Mild to moderate pulmonary venous congestion. No focal consolidation. Please note that chest x-ray has limited sensitivity for the detection of pulmonary masses. PLEURA: No significant pleural effusion identified. No definite pneumothorax . CARDIOVASCULAR: Marked cardiomegaly. Median sternotomy wires with evidence of CABG. OSSEOUS STRUCTURES: Osseous demineralization. Degenerative changes of the spine and shoulders. VISUALIZED UPPER ABDOMEN: Unremarkable. OTHER FINDINGS: None. IMPRESSION: Mild to moderate pulmonary venous congestion. Marked cardiomegaly.
--- NOTE | 2017-06-08 22:11 | CP.PCM.CON ---
History of Present Illness - History of Present Illness History of Present Illness: CC: syncope HPI: 66 M with hx of CABG, HTN, hyperlipidemia admitted for syncope Patient was in bradycardia in the morning Also Cocaine positive ECHO: Borderline LV function Carotids: Normal Unclear etiology at this time Bradycardia Vs. Ischemia B blockers held Likely needs stress test prior to discharge Stress test Sunday Past Patient History - Past Medical History & Family History Past Medical History?: Yes - Past Social History Smoking Status: Never Smoked - CARDIAC Hx Cardiac Disorders: Yes Hx Hypercholesterolemia: Yes Hx Hypertension: Yes Hx Peripheral Edema: Yes - PULMONARY Hx Respiratory Disorders: Yes Hx Sleep Apnea: Yes - NEUROLOGICAL Hx Neurological Disorder: Yes Hx Seizures: Yes (does not remember) - HEENT Hx HEENT Problems: Yes Hx Cataracts: Yes (bilat iol) - RENAL Hx Chronic Kidney Disease: No - ENDOCRINE/METABOLIC Hx Endocrine Disorders: Yes Hx Diabetes Mellitus Type 2: Yes - HEMATOLOGICAL/ONCOLOGICAL Hx Blood Disorders: Yes - INTEGUMENTARY Hx Dermatological Problems: No - MUSCULOSKELETAL/RHEUMATOLOGICAL Hx Musculoskeletal Disorders: Yes Hx Falls: No Hx Osteoarthritis: Yes - GASTROINTESTINAL Hx Gastrointestinal Disorders: No - GENITOURINARY/GYNECOLOGICAL Hx Genitourinary Disorders: No - PSYCHIATRIC Hx Substance Use: No - SURGICAL HISTORY Hx Surgeries: Yes Hx Cataract Extraction: Yes Hx Cardiac Catheterization: Yes (5 yrs ago) Hx Open Heart Surgery: Yes (2013) Other/Comment: no further information given by patient - ANESTHESIA Hx Anesthesia: Yes Hx Anesthesia Reactions: No Hx Malignant Hyperthermia: No Meds Allergies/Adverse Reactions: Allergies Allergy/AdvReac Type Severity Reaction Status Date / Time No Known Allergies Allergy Verified 06/06/17 21:02 - Medications Medications: Current Medications Aspirin (Ecotrin) 81 mg PO DAILY [facility] Last Admin: 06/08/17 10:24 Dose: 81 mg Enalapril Maleate (Vasotec) 20 mg PO DAILY [facility] Last Admin: 06/08/17 10:24 Dose: 20 mg Famotidine (Pepcid) 20 mg PO DAILY [facility] Last Admin: 06/08/17 10:24 Dose: 20 mg Furosemide (Lasix) 40 mg PO DAILY [facility] Heparin Sodium (Porcine) (Heparin) 5,000 units SC Q8 [facility] Last Admin: 06/08/17 21:36 Dose: 5,000 units Metformin HCl (Glucophage Xr) 500 mg PO BID [facility] Last Admin: 11/24/17 18:51 Dose: 500 mg Rosuvastatin Calcium (Crestor) 10 mg PO HS [facility] Results - Vital Signs Recent Vital Signs: Last Vital Signs Temp 98.1 F 06/08/17 15:25 Pulse 64 06/08/17 16:00 Resp 20 06/08/17 15:25 BP 139/76 06/08/17 15:25 Pulse Ox 99 06/08/17 15:25 - Labs Result Diagrams: 06/08/17 06:25 06/08/17 06:25 Labs: Laboratory Results - last 24 hr 06/08/17 06/08/17 06/08/17 06:25 06:25 06:46 WBC 5.0 RBC 4.24 L Hgb 13.8 Hct 40.3 MCV 95.1 H MCH 32.6 H MCHC 34.2 RDW 13.3 Plt Count 163 MPV 10.1 Neut % (Auto) 49.4 L Lymph % (Auto) 35.9 [place] % (Auto) 8.5 Eos % (Auto) 5.6 H Baso % (Auto) 0.6 Neut # 2.4 Lymph # 1.8 [place] # 0.4 Eos # 0.3 Baso # 0.0 Sodium 135 Potassium 4.5 Chloride 100 Carbon Dioxide 29 Anion Gap 11 BUN 22 H Creatinine 1.0 Est GFR ( Amer) > 60 Est GFR (Non-Af Amer) > 60 POC Glucose (mg/dL) 147 H Random Glucose 152 H Calcium 8.4 L Phosphorus 3.4 Magnesium 1.7 Total Bilirubin 0.5 AST 28 ALT 38 Alkaline Phosphatase 67 Total Protein 6.1 L Albumin 3.5 Globulin 2.6 Albumin/Globulin Ratio 1.3 Free T4 TSH 3rd Generation 06/08/17 06/08/17 06/08/17 17:20 17:20 17:41 WBC RBC Hgb Hct MCV MCH MCHC RDW Plt Count MPV Neut % (Auto) Lymph % (Auto) [place] % (Auto) Eos % (Auto) Baso % (Auto) Neut # Lymph # [place] # Eos # Baso # Sodium Potassium Chloride Carbon Dioxide Anion Gap BUN Creatinine Est GFR ( Amer) Est GFR (Non-Af Amer) POC Glucose (mg/dL) 201 H Random Glucose Calcium Phosphorus Magnesium Total Bilirubin AST ALT Alkaline Phosphatase Total Protein Albumin Globulin Albumin/Globulin Ratio Free T4 1.20 TSH 3rd Generation 1.78 06/08/17 21:33 WBC RBC Hgb Hct MCV MCH MCHC RDW Plt Count MPV Neut % (Auto) Lymph % (Auto) [place] % (Auto) Eos % (Auto) Baso % (Auto) Neut # Lymph # [place] # Eos # Baso # Sodium Potassium Chloride Carbon Dioxide Anion Gap BUN Creatinine Est GFR ( Amer) Est GFR (Non-Af Amer) POC Glucose (mg/dL) 161 H Random Glucose Calcium Phosphorus Magnesium Total Bilirubin AST ALT Alkaline Phosphatase Total Protein Albumin Globulin Albumin/Globulin Ratio Free T4 TSH 3rd Generation
[2017-06-09 08:11] LABS: BASO % 0.6 % (0.0-2.0); EOS # 0.3 K/uL (0.0-0.7); EOS % 5.8 % (0.0-4.0); HEMATOCRIT 44.2 % (35.0-51.0); LYMPH # 1.6 K/uL (1.0-4.3); LYMPH % 32.3 % (20.0-40.0); MEAN CELL VOLUME 94.3 fL (80.0-94.0); MEAN CORPUSCULAR HEMOGLOBIN 31.9 pg (27.0-31.0); MEAN CORPUSCULAR HGB CONC 33.8 g/dL (33.0-37.0); MEAN PLATELET VOLUME 8.9 fL (7.2-11.7); MONO # 0.5 K/uL (0.0-0.8); MONO % 10.7 % (0.0-10.0); NRBC % 0.2 % (0.0-2.0); RED CELL DISTRIBUTION WIDTH 13.4 % (11.5-14.5); WHITE BLOOD COUNT 4.9 K/uL (4.8-10.8)
[2017-06-09 08:41] LABS: ALB/GLOB RATIO 1.4 (1.0-2.1); ALKALINE PHOSPHATASE 71 U/L (38-126); ALT/SGPT 34 U/L (21-72); AST/SGOT 26 U/L (17-59); BILIRUBIN,TOTAL 0.6 mg/dL (0.2-1.3); BLOOD UREA NITROGEN 19 mg/dL (9-20); CALCIUM 8.6 mg/dl (8.6-10.4); CARBON DIOXIDE 29 mmol/L (22-30); CHLORIDE 98 mmol/L (98-107); GFR AFRICAN-AMERICAN > 60; GLUCOSE,RANDOM 153 mg/dL (75-110); MAGNESIUM 1.7 mg/dL (1.6-2.3); PHOSPHOROUS 3.7 mg/dL (2.5-4.5); POTASSIUM 3.8 mmol/L (3.6-5.2); SODIUM 136 mmol/L (132-148)
[2017-06-09 09:00] LABS: THYROID STIMULATING HORMONE 1.25 mIU/L (0.46-4.68)
--- NOTE | 2017-06-09 12:05 | CP.PCM.PN ---
Addendum entered and electronically signed by Jordi Daly, DO 06/09/17 14:29: Dr. Chapman spoke to Dr. Nava; he is recommending cath sunday patient will be made NPO after midnight on Sunday Original Note: <Jordi Daly - Last Filed: 06/09/17 14:01> Subjective - Date & Time of Evaluation Date of Evaluation: 06/09/17 Time of Evaluation: 14:02 - Subjective Subjective: PGY2 Note for Dr. Chapman This patient was seen and examined at bedside this AM; denies any complaints at this time and states that his chest pain has gone away. The patient is adamant that he has not used cocaine. He denies all symptoms today; denies fevers/chills , HEADLEY, CP, SOB, abdominal pain, N/V/D, dysuria/freq/urg or lower extremity pain/ swelling. He is somewhat reluctant to have to stay for stress today on Sunday but I reassured him that it is the best thing he should do and he agreed. Objective - Vital Signs/Intake and Output Vital Signs (last 24 hours): Temp Pulse Resp BP Pulse Ox 98.0 F 71 18 148/88 96 06/09/17 08:51 06/09/17 08:51 06/09/17 08:51 06/09/17 09:34 06/09/17 08:51 Intake and Output: 06/09/17 06/09/17 06:59 18:59 Intake Total 500 Output Total 2050 Balance -1550 - Medications Medications: Current Medications Aspirin (Ecotrin) 81 mg PO DAILY [facility] Last Admin: 06/09/17 09:32 Dose: 81 mg Enalapril Maleate (Vasotec) 20 mg PO DAILY [facility] Last Admin: 06/09/17 09:32 Dose: 20 mg Famotidine (Pepcid) 20 mg PO DAILY [facility] Last Admin: 06/09/17 09:33 Dose: 20 mg Furosemide (Lasix) 40 mg PO DAILY [facility] Last Admin: 06/09/17 09:34 Dose: 40 mg Heparin Sodium (Porcine) (Heparin) 5,000 units SC Q8 [facility] Last Admin: 06/09/17 06:43 Dose: 5,000 units Metformin HCl (Glucophage Xr) 500 mg PO BID [facility] Last Admin: 06/09/17 09:32 Dose: 500 mg Rosuvastatin Calcium (Crestor) 10 mg PO HS [facility] Last Admin: 06/08/17 22:23 Dose: 10 mg - Labs Labs: 06/09/17 08:02 06/09/17 08:02 - Constitutional Appears: Non-toxic - Head Exam Head Exam: ATRAUMATIC - Eye Exam Eye Exam: EOMI Pupil Exam: PERRL - ENT Exam ENT Exam: Mucous Membranes Moist - Neck Exam Neck Exam: Full ROM. absent: Lymphadenopathy - Respiratory Exam Respiratory Exam: Clear to Ausculation Bilateral - Cardiovascular Exam Cardiovascular Exam: REGULAR RHYTHM. absent: JVD - GI/Abdominal Exam GI & Abdominal Exam: Soft, Normal Bowel Sounds - Extremities Exam Extremities Exam: Full ROM. absent: Calf Tenderness - Back Exam Back Exam: NORMAL INSPECTION. absent: CVA tenderness (L), CVA tenderness (R) - Neurological Exam Neurological Exam: Alert, Awake, CN II-XII Intact, Oriented x3 Assessment and Plan - Assessment and Plan (Free Text) Assessment: Syncope possibly due to hypoglycemia vs. Cocaine use - Head CT (06/06/17): No acute intracranial abnormality - Orthostatic vital signs WNL - UDS: + Cocaine - f/u ECHO; has not been read yet - Carotid dopplers: right & left- does not suggest hemodynamically significant stenosis - Brain MRI: no acute intracranial hemorrhage or infarct. Minimal chronic white matter ischemic changes; mild age-appropriate ischemic changes - 0.5mg of Ativan ordered for MRI patient states he feels claustrophobic - CXR (portable): central pulmonary vascular congestion; r/o developing or mild chronic compensated pulmonary edema/CHF; questionable tiny b/l effusions right> left. - CXR (PA/Lat): f/u results - ZABRINA: x3 negative - EKG Normal Sinus Rhythm - D-dimer: <200 - Cardiology consulted- Dr. Nava, help appreciated - If heart rate >100, can consider starting Cardizem - Is recommending stress test on Monday 06/11 before discharge - TSH, Free T4 WNL Cocaine use - + Cocaine; patient counseled on cessation - ZABRINA: x3 negative - EKG Normal Sinus Rhythm - Avoidance of cocaine, tobacco, and alcohol were discussed at length with the patient. Also discussed importance of avoiding combination of beta blockers and cocaine with patient. Diabetes - Continue Metformin 500 mg BID - Accuchecks q6h HTN (hypertension) - Enalapril 20 mg PO daily - Toprol Xl 50 mg PO daily - discontinued due to + Cocaine in UDS CAD (coronary artery disease) - Continue ASA 81mg po daily Dehydration - NS @ 100 cc/hr - discontinued Prophylactic measure - SCDs - Heparin SC daily - Pepcid 20mg po daily - Fall precautions - Heart Healthy diet Case discussed with Dr. Chapman <Mini Chapman V - Last Filed: 06/09/17 14:45> Objective - Vital Signs/Intake and Output Vital Signs (last 24 hours): Temp Pulse Resp BP Pulse Ox 98.0 F 79 18 148/88 96 06/09/17 08:51 06/09/17 12:13 06/09/17 08:51 06/09/17 09:34 06/09/17 08:51 Intake and Output: 06/09/17 06/09/17 06:59 18:59 Intake Total 500 700 Output Total 2050 Balance -1550 700 - Medications Medications: Current Medications Aspirin (Ecotrin) 81 mg PO DAILY [facility] Last Admin: 06/09/17 09:32 Dose: 81 mg Dextrose (Dextrose 50% Inj) 0 ml IV STAT PRN; Protocol PRN Reason: Hypoglycemia Protocol Dextrose (Glutose 15) 0 gm PO ONCE PRN; Protocol PRN Reason: Hypoglycemia Protocol Enalapril Maleate (Vasotec) 20 mg PO DAILY [facility] Last Admin: 06/09/17 09:32 Dose: 20 mg Famotidine (Pepcid) 20 mg PO DAILY [facility] Last Admin: 06/09/17 09:33 Dose: 20 mg Furosemide (Lasix) 40 mg PO DAILY [facility] Last Admin: 06/09/17 09:34 Dose: 40 mg Glucagon (Glucagen Diagnostic Kit) 0 mg IM STAT PRN; Protocol PRN Reason: Hypoglycemia Protocol Heparin Sodium (Porcine) (Heparin) 5,000 units SC Q8 [facility] Last Admin: 06/09/17 13:08 Dose: 5,000 units Dextrose (Dextrose 5% In Water 1000 Ml) 1,000 mls @ 0 mls/hr IV .Q0M PRN; Protocol; Per Protocol PRN Reason: Hypoglycemia Protocol Insulin Aspart (Novolog) 0 unit SC ACHS [facility] PRN Reason: Protocol Rosuvastatin Calcium (Crestor) 10 mg PO HS [facility] Last Admin: 06/08/17 22:23 Dose: 10 mg - Labs Labs: 06/09/17 08:02 06/09/17 08:02 Attending/Attestation - Attestation I have personally seen and examined this patient.: Yes I have fully participated in the care of the patient.: Yes I have reviewed all pertinent clinical information, including history, physical exam and plan: Yes Notes (Text): Patient seen, examined, and case discussed with day-time resident. With [employer], Maylin Morse [id number], [place] intrepretator. Patient reports he is feeling better, denies chest pain, denies dizziness, denies lightheadedness, denies abdominal pain, denies nausea, denies vomitting, denies problems with bowel nor bladder. Patient able to reiterate that cocaine can damage the heart and he can from it and reports he will never use it. Patient reports he had a stress test with Dr. Estrada about three months ago, and he reports the results were fine. Discussed with Dr. Nava, he will touch base with Dr. Estrada in regards to recent stress, and plan for cardiac cath for Sunday06/11/17. Pending official report of echocardiogram Discussed results of Brain MRI and cartoid with the patient. Patient does not want his medical information shared with his family members. Note: no family present at bedside during this conversation. Assessment/Plan 1) Syncopal episode * Monitor on telemetry * Head CT: no acute intracranial abnormality * orthostatic vital signs WNL * Positive for cocaine use-->discontinue beta john in light of cocaine use * fall precautions * D-dimer: negative-->low suspicion for PE * Carotid dopplers: right & left- does not suggest hemodynamically significant stenosis * Brain MRI: no acute intracranial hemorrhage or infarct. Minimal chronic white matter ischemic changes; mild age-appropriate ischemic changes * ZABRINA: x3 negative * pending official echocardiogram report * Cardiology consulted- Dr. Nava, help appreciated - If heart rate >100, can consider starting Cardizem. * TSH, Free T4: within normal * Tentatively plan for cardiac cath on 06/11/17 2) Dehydration-->resolved * d/c fluids; patient appears well-hydrated 3) Diabetes (uncontrolled) * d/c Metformin 500mg PO BID * [id number]: 9.5 * Hypoglycemic protocol * accuchecks QACHS * Lipid Panel: cholestrol: TG: LDL: HDL: Pending 4) Hypertension * continue Enalapril 20 mg po daily * d/c Toprol Xl 50 mg po daily in light of cocaine use * Cardiology consulted- Dr. Nava, help appreciated - If heart rate >100, can consider starting Cardizem. * Patient given dose of [place] 40mg IV X1 given chest xray result showing congestion; start lasix 40mg PO daily 5) Hx CAD; hx of open heart surgery * Cardiology (Dr. Nava who covers for patient's telephone quotation clerk, Dr Estrada) help appreciated * If heart rate >100, can consider starting Cardizem. * continue ASA 81mg po daily * continue Enalapril 20 mg po daily * d/c Toprol Xl 50 mg po daily in light of cocaine use * Start Crestor 10mg POqHS given heart history * Diet adjusted for fluid restriction * pending official echocardiogram report 6)Cocaine Use * monitor on telemetry * ROMIs and f/u EKGs * D/C Beta-john * I strongly educated the patient at bedside in regards to cocaine, tobacco, and alcohol were discussed at length with the patient especially in light of his cardiac history. Also discussed importance of avoiding combination of beta blockers and cocaine with patient. 7)Prophylaxis * DVT: SCDs, Heparin 5000 units subq 8Hs * GI: Pepcid 20mg po daily Disposition: * Patient is tentatively scheduled for cardiac cath 06/11/17. Dr. nava will follow-up with Dr. Estrada in regards to recent stress test result. Dr. Nava recommends should not be on beta-john in future.
[2017-06-09] MEDS ORDERED: Dextrose 50% SYRINGE Inj (50 ml) IV PRN (13:22)
[2017-06-09] MEDS ORDERED: Glucagon Recombinant 1 mg Inj IM PRN (13:22)
[2017-06-09 16:17] VITALS: RESP 20
--- NOTE | 2017-06-09 16:25 | CARD ---
APPROVED REPORT EXAM: Two-dimensional and M-mode echocardiogram with Doppler and color Doppler. Other Information Quality : GoodRhythm : INDICATION Cardiac Disease: CAD Syncope RISK FACTORS Hypertension Diabetes 2D DIMENSIONS IVSd1.3 (0.7-1.1cm)LVDd6.1 (3.9-5.9cm) PWd1.2 (0.7-1.1cm)LVDs4.3 (2.5-4.0cm) FS (%) 30.0 %LVEF (%)50.0 (>50%) M-Mode DIMENSIONS Left Atrium (MM)4.77 (2.5-4.0cm)Aortic Root3.24 (2.2-3.7cm) Aortic Cusp Exc.2.21 (1.5-2.0cm) Mitral Valve MV E Klzcthdp19.3cm/sMV A Qoogqcoi10.5cm/sE/A ratio1.3 TDI E/Lateral E'0.0E/Medial E'0.0 Tricuspid Valve TR Peak Zidlnynr085eh/sTR Peak Gr.24enPfRQYP31lfCx LEFT VENTRICLE The Left Ventricle is mildly dilated. There is mild concentric left ventricular hypertrophy. The systolic function is mildly impaired. There is normal LV segmental wall motion. The left ventricular diastolic function is normal. No left ventricle thrombus noted on this study. There is no ventricular septal defect visualized. There is no left ventricular aneurysm. There is no mass noted in the left ventricle. RIGHT VENTRICLE The right ventricle is normal size. There is normal right ventricular wall thickness. The right ventricular systolic function is normal. ATRIA The left atrium is mildly dilated. The right atrium size is normal. The interatrial septum is intact with no evidence for an atrial septal defect. AORTIC VALVE The aortic valve is mildly sclerotic. No aortic regurgitation is present. There is no aortic valvular stenosis. There is no aortic valvular vegetation. MITRAL VALVE The mitral valve is normal in structure. There is no mitral valve stenosis. Mitral regurgitation is mild. TRICUSPID VALVE The tricuspid valve is normal in structure. There is no tricuspid valve regurgitation noted. There is mild to moderate pulmonary hypertension. PULMONIC VALVE The pulmonary valve is normal in structure. There is no pulmonic valvular regurgitation. GREAT VESSELS The aortic root displays mild sclerocalcific changes of the aortic root. The ascending aorta is normal in size. The pulmonary artery is normal. The IVC is normal in size and collapses >50% with inspiration. PERICARDIAL EFFUSION There is no pericardial effusion. <Conclusion> The Left Ventricle is mildly dilated. There is mild concentric left ventricular hypertrophy. The systolic function is mildly impaired. The left atrium is mildly dilated. Mitral regurgitation is mild. There is no tricuspid valve regurgitation noted. There is mild to moderate pulmonary hypertension.
--- NOTE | 2017-06-09 16:54 | CARD ---
APPROVED REPORT EKG Measurement Heart [id number] OR [id number] <Conclusion> Poor data quality, interpretation may be adversely affected Sinus rhythm with 1st degree AV block with premature atrial complexes in a pattern of bigeminy Nonspecific intraventricular block Inferior infarct, age undetermined T wave abnormality, consider lateral ischemia Abnormal ECG
--- NOTE | 2017-06-09 16:54 | CARD ---
APPROVED REPORT EKG Measurement Heart [id number] <Conclusion> Sinus rhythm with 1st degree AV block with occasional premature ventricular complexes and premature atrial complexes Nonspecific intraventricular block Inferior infarct, age undetermined T wave abnormality, consider lateral ischemia Abnormal ECG
[2017-06-09] MEDS: (Novolog) Insulin Aspart, Recombinant 100 u/ml 10 ml vial SC SCH ×2 (17:55→21:53)
--- NOTE | 2017-06-09 22:26 | CP.PCM.PN ---
Subjective - Date & Time of Evaluation Date of Evaluation: 06/09/17 Time of Evaluation: 13:20 - Subjective Subjective: Patient seen and evaluated No cardiac events noted For cardiac cath Sunday Objective - Vital Signs/Intake and Output Vital Signs (last 24 hours): Temp Pulse Resp BP Pulse Ox 98.3 F 75 20 113/77 95 06/09/17 16:00 06/09/17 16:00 06/09/17 16:00 06/09/17 16:00 06/09/17 16:00 Intake and Output: 06/09/17 06/10/17 18:59 06:59 Intake Total 700 Balance 700 - Medications Medications: Current Medications Aspirin (Ecotrin) 81 mg PO DAILY [facility] Last Admin: 06/09/17 09:32 Dose: 81 mg Dextrose (Dextrose 50% Inj) 0 ml IV STAT PRN; Protocol PRN Reason: Hypoglycemia Protocol Dextrose (Glutose 15) 0 gm PO ONCE PRN; Protocol PRN Reason: Hypoglycemia Protocol Enalapril Maleate (Vasotec) 20 mg PO DAILY [facility] Last Admin: 06/09/17 09:32 Dose: 20 mg Famotidine (Pepcid) 20 mg PO DAILY [facility] Last Admin: 06/09/17 09:33 Dose: 20 mg Furosemide (Lasix) 40 mg PO DAILY [facility] Last Admin: 06/09/17 09:34 Dose: 40 mg Glucagon (Glucagen Diagnostic Kit) 0 mg IM STAT PRN; Protocol PRN Reason: Hypoglycemia Protocol Heparin Sodium (Porcine) (Heparin) 5,000 units SC Q8 [facility] Stop: 06/10/17 23:59 Last Admin: 06/09/17 21:39 Dose: 5,000 units Dextrose (Dextrose 5% In Water 1000 Ml) 1,000 mls @ 0 mls/hr IV .Q0M PRN; Protocol; Per Protocol PRN Reason: Hypoglycemia Protocol Insulin Aspart (Novolog) 0 unit SC ACHS [facility] PRN Reason: Protocol Last Admin: 06/09/17 21:53 Dose: Not Given Rosuvastatin Calcium (Crestor) 10 mg PO HS [facility] Last Admin: 06/09/17 21:39 Dose: 10 mg - Labs Labs: 06/09/17 08:02 06/09/17 08:02
--- NOTE | 2017-06-10 03:33 | CP.PCM.PN ---
<Shonda Marroquin - Last Filed: 06/10/17 06:46> Subjective - Date & Time of Evaluation Date of Evaluation: 06/10/17 Time of Evaluation: 05:00 - Subjective Subjective: Patient was seen and examined at bedside. Patient reports feeling well and has no complaints today. Patient denies having chest pain, palpitations, shortness of breath, abdominal pain, nausea, vomiting, fevers, headaches, and dizziness. Objective - Vital Signs/Intake and Output Vital Signs (last 24 hours): Temp Pulse Resp BP Pulse Ox 98.0 F 56 L 20 137/83 97 06/09/17 23:05 06/09/17 23:05 06/09/17 23:05 06/09/17 23:05 06/09/17 23:05 Intake and Output: 06/09/17 06/10/17 18:59 06:59 Intake Total 700 500 Balance 700 500 - Medications Medications: Current Medications Aspirin (Ecotrin) 81 mg PO DAILY [facility] Last Admin: 06/09/17 09:32 Dose: 81 mg Dextrose (Dextrose 50% Inj) 0 ml IV STAT PRN; Protocol PRN Reason: Hypoglycemia Protocol Dextrose (Glutose 15) 0 gm PO ONCE PRN; Protocol PRN Reason: Hypoglycemia Protocol Enalapril Maleate (Vasotec) 20 mg PO DAILY [facility] Last Admin: 06/09/17 09:32 Dose: 20 mg Famotidine (Pepcid) 20 mg PO DAILY [facility] Last Admin: 06/09/17 09:33 Dose: 20 mg Furosemide (Lasix) 40 mg PO DAILY [facility] Last Admin: 06/09/17 09:34 Dose: 40 mg Glucagon (Glucagen Diagnostic Kit) 0 mg IM STAT PRN; Protocol PRN Reason: Hypoglycemia Protocol Heparin Sodium (Porcine) (Heparin) 5,000 units SC Q8 [facility] Stop: 06/10/17 23:59 Last Admin: 06/09/17 21:39 Dose: 5,000 units Dextrose (Dextrose 5% In Water 1000 Ml) 1,000 mls @ 0 mls/hr IV .Q0M PRN; Protocol; Per Protocol PRN Reason: Hypoglycemia Protocol Insulin Aspart (Novolog) 0 unit SC ACHS [facility] PRN Reason: Protocol Last Admin: 06/09/17 21:53 Dose: Not Given Rosuvastatin Calcium (Crestor) 10 mg PO HS [facility] Last Admin: 06/09/17 21:39 Dose: 10 mg - Labs Labs: 06/09/17 08:02 06/09/17 08:02 - Constitutional Appears: No Acute Distress - Head Exam Head Exam: ATRAUMATIC, NORMAL INSPECTION - Eye Exam Eye Exam: EOMI, Normal appearance - ENT Exam ENT Exam: Mucous Membranes Moist - Respiratory Exam Respiratory Exam: Clear to Ausculation Bilateral, NORMAL BREATHING PATTERN - Cardiovascular Exam Cardiovascular Exam: REGULAR RHYTHM, +S1, +S2 - GI/Abdominal Exam GI & Abdominal Exam: Soft, Normal Bowel Sounds. absent: Tenderness - Extremities Exam Extremities Exam: Normal Inspection - Neurological Exam Neurological Exam: Alert, Awake, Oriented x3 - Psychiatric Exam Psychiatric exam: Normal Affect, Normal Mood - Skin Skin Exam: Normal Color, Warm Assessment and Plan - Assessment and Plan (Free Text) Assessment: 1.) Syncopal episode possibly due to hypoglycemia vs. Cocaine use - Head CT (06/06/17): No acute intracranial abnormality - Orthostatic vital signs WNL - UDS: + Cocaine - ECHO (06/07): EF 50%; left ventricle is mildly dilated; there is mild concentric left venticular hypertrophy; the systolic function is mildly impaired ; the left atrium is mildly dilated; mitral regurgitation is mild; there is no tricuspid valve regurgitation noted; there is mild to moderate pulmonary hypertension. - Carotid dopplers: right & left- does not suggest hemodynamically significant stenosis - Brain MRI: no acute intracranial hemorrhage or infarct. Minimal chronic white matter ischemic changes; mild age-appropriate ischemic changes - 0.5mg of Ativan ordered for MRI patient states he feels claustrophobic - ZABRINA: x3 negative - EKG Normal Sinus Rhythm - D-dimer: <200 - Cardiology consulted- Dr. Nava, help appreciated - If heart rate >100, can consider starting Cardizem. - TSH 1.25, Free T4: 1.20 2 .) Cocaine use - UDS + Cocaine - ZABRINA: x3 negative - EKG Normal Sinus Rhythm 3.) History of DM - Continue Metformin 500 mg BID - Accuchecks q6h 4.) History of HTN - Enalapril 20 mg PO daily - Toprol Xl 50 mg PO daily - discontinued due to + Cocaine in UDS 5.) History of CAD -continue ASA 81mg po daily 6.) Dehydration - resolved - NS @ 100 cc/hr - discontinued 7.) Prophylaxis - SCDs - Heparin SC daily - Pepcid 20mg po daily - Fall precautions - Heart Healthy Diet <Mini Chapman V - Last Filed: 06/10/17 12:41> Objective - Vital Signs/Intake and Output Vital Signs (last 24 hours): Temp Pulse Resp BP Pulse Ox 98.1 F 76 20 125/78 94 L 06/10/17 09:50 06/10/17 11:44 06/10/17 09:50 06/10/17 09:50 06/10/17 09:50 Intake and Output: 06/10/17 06/10/17 06:59 18:59 Intake Total 500 Balance 500 - Medications Medications: Current Medications Aspirin (Ecotrin) 81 mg PO DAILY [facility] Last Admin: 06/10/17 09:04 Dose: 81 mg Dextrose (Dextrose 50% Inj) 0 ml IV STAT PRN; Protocol PRN Reason: Hypoglycemia Protocol Dextrose (Glutose 15) 0 gm PO ONCE PRN; Protocol PRN Reason: Hypoglycemia Protocol Enalapril Maleate (Vasotec) 20 mg PO DAILY [facility] Last Admin: 06/10/17 09:04 Dose: 20 mg Famotidine (Pepcid) 20 mg PO DAILY [facility] Last Admin: 06/10/17 09:05 Dose: 20 mg Furosemide (Lasix) 40 mg PO DAILY [facility] Last Admin: 06/10/17 09:04 Dose: 40 mg Glucagon (Glucagen Diagnostic Kit) 0 mg IM STAT PRN; Protocol PRN Reason: Hypoglycemia Protocol Heparin Sodium (Porcine) (Heparin) 5,000 units SC Q8 [facility] Stop: 06/10/17 23:59 Last Admin: 06/10/17 06:51 Dose: 5,000 units Dextrose (Dextrose 5% In Water 1000 Ml) 1,000 mls @ 0 mls/hr IV .Q0M PRN; Protocol; Per Protocol PRN Reason: Hypoglycemia Protocol Insulin Aspart (Novolog) 0 unit SC ACHS [facility] PRN Reason: Protocol Last Admin: 06/10/17 08:36 Dose: 1 unit Rosuvastatin Calcium (Crestor) 10 mg PO HS [facility] Last Admin: 06/09/17 21:39 Dose: 10 mg - Labs Labs: 06/10/17 08:49 06/10/17 08:49 Attending/Attestation - Attestation I have personally seen and examined this patient.: Yes I have fully participated in the care of the patient.: Yes I have reviewed all pertinent clinical information, including history, physical exam and plan: Yes Notes (Text): Patient seen, examined, and case discussed with day-time resident. Patient denies acute complaints. Patient is NPO after midnight. Patient is for cardiac catherization tomorrow with Dr. Nava. Pending discharge post cath result. Assessment/Plan 1) Syncopal episode * Monitor on telemetry * Head CT: no acute intracranial abnormality * orthostatic vital signs WNL * Positive for cocaine use-->discontinue beta john in light of cocaine use * fall precautions * D-dimer: negative-->low suspicion for PE * Carotid dopplers: right & left- does not suggest hemodynamically significant stenosis * Brain MRI: no acute intracranial hemorrhage or infarct. Minimal chronic white matter ischemic changes; mild age-appropriate ischemic changes * ZABRINA: x3 negative * pending official echocardiogram report * Cardiology consulted- Dr. Nava, help appreciated - If heart rate >100, can consider starting Cardizem. * TSH, Free T4: within normal * Tentatively plan for cardiac cath on 06/11/17 * Echocardiogram (06/09/17): left ventricle is mildly dilated. mild concentric left ventricular hypertrophy, systolic function is mildly impaired. Mitral regurgitation is mild. No tricupisd valve regurgitation noted. Mild to moderate pulmonary hypertension 2) Dehydration-->resolved 3) Diabetes (uncontrolled) * d/c Metformin 500mg PO BID * Dlckqulbeq2j: 9.5 * Hypoglycemic protocol * accuchecks QACHS * Lipid Panel: cholestrol: TG: LDL: HDL: Pending 4) Hypertension * continue Enalapril 20 mg po daily * d/c Toprol Xl 50 mg po daily in light of cocaine use * Cardiology consulted- Dr. Nava, help appreciated - If heart rate >100, can consider starting Cardizem * start lasix 40mg PO daily 5) Hx CAD; hx of open heart surgery * Cardiology (Dr. Nava who covers for patient's engine monitor, Dr Estrada) help appreciated * If heart rate >100, can consider starting Cardizem. * continue ASA 81mg po daily * continue Enalapril 20 mg po daily * d/c Toprol Xl 50 mg po daily in light of cocaine use * Start Crestor 10mg POqHS given heart history * Diet adjusted for fluid restriction * Echocardiogram (06/09/17): left ventricle is mildly dilated. mild concentric left ventricular hypertrophy, systolic function is mildly impaired. Mitral regurgitation is mild. No tricupisd valve regurgitation noted. Mild to moderate pulmonary hypertension 6) Cocaine Use * monitor on telemetry * ROMIs and f/u EKGs * D/C Beta-john * I strongly educated the patient at bedside in regards to cocaine, tobacco, and alcohol were discussed at length with the patient especially in light of his cardiac history. Also discussed importance of avoiding combination of beta blockers and cocaine with patient.. Daily. * Echocardiogram (06/09/17): left ventricle is mildly dilated. mild concentric left ventricular hypertrophy, systolic function is mildly impaired. Mitral regurgitation is mild. No tricupisd valve regurgitation noted. Mild to moderate pulmonary hypertension 7)Prophylaxis * DVT: SCDs, Heparin 5000 units subq 8Hs * GI: Pepcid 20mg po daily Disposition: * Patient for cardiac catherization tomorrow 06/11/[address] Nava. Discharge pending post-cath.
[2017-06-10] MEDS: (Novolog) Insulin Aspart, Recombinant 100 u/ml 10 ml vial SC SCH ×4 (08:36→21:46)
[2017-06-10 09:13] LABS: BASO % 0.7 % (0.0-2.0); EOS # 0.3 K/uL (0.0-0.7); EOS % 4.7 % (0.0-4.0); HEMATOCRIT 42.8 % (35.0-51.0); LYMPH % 34.5 % (20.0-40.0); MEAN CORPUSCULAR HEMOGLOBIN 32.1 pg (27.0-31.0); MEAN CORPUSCULAR HGB CONC 34.5 g/dL (33.0-37.0); MEAN PLATELET VOLUME 9.6 fL (7.2-11.7); MONO # 0.5 K/uL (0.0-0.8); MONO % 8.8 % (0.0-10.0); NRBC % 0.1 % (0.0-2.0); RED CELL DISTRIBUTION WIDTH 13.1 % (11.5-14.5); WHITE BLOOD COUNT 5.8 K/uL (4.8-10.8)
[2017-06-10 09:20] LABS: ALB/GLOB RATIO 1.3 (1.0-2.1); ALKALINE PHOSPHATASE 67 U/L (38-126); ALT/SGPT 46 U/L (21-72); AST/SGOT 37 U/L (17-59); BILIRUBIN,TOTAL 0.7 mg/dL (0.2-1.3); BLOOD UREA NITROGEN 26 mg/dL (9-20); CARBON DIOXIDE 28 mmol/L (22-30); CHLORIDE 98 mmol/L (98-107); GFR AFRICAN-AMERICAN > 60; GLUCOSE,RANDOM 156 mg/dL (75-110); MAGNESIUM 1.7 mg/dL (1.6-2.3); PHOSPHOROUS 4.2 mg/dL (2.5-4.5); POTASSIUM 3.9 mmol/L (3.6-5.2); SODIUM 135 mmol/L (132-148); TOTAL PROTEIN 6.7 g/dL (6.3-8.3)
--- NOTE | 2017-06-10 15:58 | CARD ---
APPROVED REPORT EKG Measurement Heart [id number] [place] [id number] <Conclusion> Normal sinus rhythm Nonspecific intraventricular block Inferior infarct, age undetermined T wave abnormality, consider lateral ischemia Abnormal ECG
--- NOTE | 2017-06-10 20:02 | CP.PCM.PN ---
Subjective - Date & Time of Evaluation Date of Evaluation: 06/10/17 Time of Evaluation: 16:10 - Subjective Subjective: Patient seen and evaluated Comfortable Scheduled for cardiac cath tomorrow Objective - Vital Signs/Intake and Output Vital Signs (last 24 hours): Temp Pulse Resp BP Pulse Ox 98.5 F 64 20 117/66 97 06/10/17 15:41 06/10/17 15:41 06/10/17 15:41 06/10/17 15:41 06/10/17 15:41 Intake and Output: 06/10/17 06/11/17 18:59 06:59 Intake Total 900 Output Total 700 Balance 200 - Medications Medications: Current Medications Aspirin (Ecotrin) 81 mg PO DAILY [facility] Last Admin: 06/10/17 09:04 Dose: 81 mg Dextrose (Dextrose 50% Inj) 0 ml IV STAT PRN; Protocol PRN Reason: Hypoglycemia Protocol Dextrose (Glutose 15) 0 gm PO ONCE PRN; Protocol PRN Reason: Hypoglycemia Protocol Enalapril Maleate (Vasotec) 20 mg PO DAILY [facility] Last Admin: 06/10/17 09:04 Dose: 20 mg Famotidine (Pepcid) 20 mg PO DAILY [facility] Last Admin: 06/10/17 09:05 Dose: 20 mg Furosemide (Lasix) 40 mg PO DAILY [facility] Last Admin: 06/10/17 09:04 Dose: 40 mg Glucagon (Glucagen Diagnostic Kit) 0 mg IM STAT PRN; Protocol PRN Reason: Hypoglycemia Protocol Dextrose (Dextrose 5% In Water 1000 Ml) 1,000 mls @ 0 mls/hr IV .Q0M PRN; Protocol; Per Protocol PRN Reason: Hypoglycemia Protocol Insulin Aspart (Novolog) 0 unit SC ACHS [facility] PRN Reason: Protocol Last Admin: 06/10/17 16:52 Dose: Not Given Rosuvastatin Calcium (Crestor) 10 mg PO HS [facility] Last Admin: 06/09/17 21:39 Dose: 10 mg - Labs Labs: 06/10/17 08:49 06/10/17 08:49
[2017-06-11 07:16] LABS: MEAN CELL VOLUME 93.7 fL (80.0-94.0); MEAN CORPUSCULAR HEMOGLOBIN 32.6 pg (27.0-31.0); MEAN CORPUSCULAR HGB CONC 34.7 g/dL (33.0-37.0); MEAN PLATELET VOLUME 8.9 fL (7.2-11.7); RED CELL DISTRIBUTION WIDTH 13.4 % (11.5-14.5); WHITE BLOOD COUNT 5.7 K/uL (4.8-10.8)
[2017-06-11 07:30] LABS: INR 1.1
[2017-06-11] MEDS: (Novolog) Insulin Aspart, Recombinant 100 u/ml 10 ml vial SC SCH ×2 (08:01→11:30)
[2017-06-11 08:43] LABS: BLOOD UREA NITROGEN 25 mg/dL (9-20); CALCIUM 8.8 mg/dl (8.6-10.4); CARBON DIOXIDE 30 mmol/L (22-30); CHLORIDE 98 mmol/L (98-107); GFR AFRICAN-AMERICAN > 60; GLUCOSE,RANDOM 167 mg/dL (75-110); SODIUM 134 mmol/L (132-148)
--- NOTE | 2017-06-11 09:54 | CP.PCM.PN ---
Subjective - Date & Time of Evaluation Date of Evaluation: 06/11/17 Time of Evaluation: 09:54 - Subjective Subjective: Medicine Progress Note for Dr. Hermosillo Patient was seen and examined at bedside in no acute distress. Patient reports he feels well and has no complaints. Patient denies having chest pain, shortness of breath, nausea, vomiting, abdominal pain, and reports having normal bowel movements. Patient is NPO and scheduled for cath today. Objective - Vital Signs/Intake and Output Vital Signs (last 24 hours): Temp Pulse Resp BP Pulse Ox 98.1 F 76 20 129/74 98 06/10/17 23:05 06/10/17 23:05 06/10/17 23:05 06/10/17 23:05 06/10/17 23:05 Intake and Output: 06/11/17 06/11/17 06:59 18:59 Output Total 600 Balance -600 - Medications Medications: Current Medications Aspirin (Ecotrin) 81 mg PO DAILY [facility] Last Admin: 06/10/17 09:04 Dose: 81 mg Dextrose (Dextrose 50% Inj) 0 ml IV STAT PRN; Protocol PRN Reason: Hypoglycemia Protocol Dextrose (Glutose 15) 0 gm PO ONCE PRN; Protocol PRN Reason: Hypoglycemia Protocol Enalapril Maleate (Vasotec) 20 mg PO DAILY [facility] Last Admin: 06/10/17 09:04 Dose: 20 mg Famotidine (Pepcid) 20 mg PO DAILY [facility] Last Admin: 06/10/17 09:05 Dose: 20 mg Furosemide (Lasix) 40 mg PO DAILY [facility] Last Admin: 06/10/17 09:04 Dose: 40 mg Glucagon (Glucagen Diagnostic Kit) 0 mg IM STAT PRN; Protocol PRN Reason: Hypoglycemia Protocol Dextrose (Dextrose 5% In Water 1000 Ml) 1,000 mls @ 0 mls/hr IV .Q0M PRN; Protocol; Per Protocol PRN Reason: Hypoglycemia Protocol Insulin Aspart (Novolog) 0 unit SC ACHS [facility] PRN Reason: Protocol Last Admin: 06/11/17 08:01 Dose: Not Given Rosuvastatin Calcium (Crestor) 10 mg PO HS [facility] Last Admin: 06/10/17 21:59 Dose: 10 mg - Labs Labs: 06/11/17 07:04 06/11/17 07:04 PT 12.0 SECONDS (9.7-12.2) 06/11/17 07:04 INR 1.1 06/11/17 07:04 - Constitutional Appears: No Acute Distress - Head Exam Head Exam: ATRAUMATIC, NORMAL INSPECTION - Eye Exam Eye Exam: EOMI, Normal appearance - ENT Exam ENT Exam: Mucous Membranes Moist - Respiratory Exam Respiratory Exam: Clear to Ausculation Bilateral, NORMAL BREATHING PATTERN. absent: Rales, Rhonchi, Wheezes, Respiratory Distress - Cardiovascular Exam Cardiovascular Exam: REGULAR RHYTHM, +S1, +S2, Murmur - GI/Abdominal Exam GI & Abdominal Exam: Soft, Normal Bowel Sounds. absent: Distended, Firm, Guarding, Tenderness - Extremities Exam Extremities Exam: Normal Inspection. absent: Calf Tenderness, Pedal Edema, Tenderness - Neurological Exam Neurological Exam: Alert, Awake, Oriented x3 - Psychiatric Exam Psychiatric exam: Normal Affect, Normal Mood - Skin Skin Exam: Dry, Intact, Normal Color, Warm Assessment and Plan (1) Syncope Status: Acute (2) Cocaine use Status: Acute (3) Diabetes Status: Acute (4) HTN (hypertension) Status: Acute (5) CAD (coronary artery disease) Status: Acute (6) Dehydration Status: Acute (7) Prophylactic measure Status: Acute - Assessment and Plan (Free Text) Plan: (1) Syncope Possibly due to hypoglycemia vs. Cocaine use * Head CT (06/06/17): No acute intracranial abnormality * Orthostatic vital signs WNL * UDS: + Cocaine * ECHO (06/07/17): EF 50%; left ventricle is mildly dilated; there is mild concentric left venticular hypertrophy; the systolic function is mildly impaired ; the left atrium is mildly dilated; mitral regurgitation is mild; there is no tricuspid valve regurgitation noted; there is mild to moderate pulmonary hypertension. * Carotid dopplers: right & left- does not suggest hemodynamically significant stenosis * Brain MRI: no acute intracranial hemorrhage or infarct. Minimal chronic white matter ischemic changes; mild age-appropriate ischemic changes * 0.5mg of Ativan ordered for MRI patient states he feels claustrophobic * CXR, portable (06/08/17): central pulmonary vascular congestion; r/o developing or mild chronic compensated pulmonary edema/CHF; questionable tiny b/ l effusions right>left. * CXR, PA/Lat (06/08/17): mild to moderate pulmonary venous congestion; marked cardiomegaly * ZABRINA: x3 negative * EKG Normal Sinus Rhythm * D-dimer: <200 * Cardiology consulted- Dr. Nava, help appreciated * If heart rate >100, can consider starting Cardizem. * TSH 1.25, Free T4: 1.20 Patient was scheduled for cardiac cath 06/11/17-- canceled Patient went for myocardial perfusion scan today (06/11/17): f/u report (2) Cocaine use * + Cocaine * ZABRINA: x3 negative * EKG Normal Sinus Rhythm * Avoidance of cocaine, tobacco, and alcohol were discussed at length with the patient. Also discussed importance of avoiding combination of beta blockers and cocaine with patient. (3) Diabetes * Continue ISS, hypoglycemic protocol * Accuchecks q6h (4) HTN (hypertension) * Enalapril 20 mg PO daily * Toprol Xl 50 mg PO daily - discontinued due to + Cocaine in UDS * Cardiology consulted- Dr. Nava, help appreciated * If heart rate >100, can consider starting Cardizem. * Continue Lasix 40mg PO daily (5) CAD (coronary artery disease) * Continue ASA 81mg po daily * Continue Enalapril 20 mg po daily * Continue Crestor 10mg POqHS * Discontinued Toprol Xl 50 mg po daily in light of cocaine use * Cardiology (Dr. Nava who covers for patient's database report writer, Dr Estrada) help appreciated * If heart rate >100, can consider starting Cardizem. (6) Dehydration Resolved (7) Prophylactic measure - SCDs - Heparin SC daily - Pepcid 20mg po daily - Fall precautions - Heart Healthy diet
[2017-06-11] MEDS ORDERED: Aminophylline 25 mg/ml Inj ONE (12:29)
--- NOTE | 2017-06-11 15:37 | CARD ---
APPROVED REPORT Protocol: PHARMACOLOGICAL STRESS Test Type: LEXISCAN Test Indications: SYNCOPE Medications: LIST SCAN Medical History: SYNCOPE Target HR: 153 bpm Resting ECG: ABNORMAL Resting Heart Rate: 81 bpm Resting Blood Pressure: 130/68mmHg submaximum (85%): 130 bpm TEST SUMMARY [id number]. EXERCISESTAGE 103:[id number]/70.1. EXERCISESTAGE 200:[id number]/70.2. PROCEDURE Pharmacologic stress testing was performed using 0.4mg per 5ml of regadenoson given intravenously over 7-10 seconds. POST EXERCISE Reason for Termination: LEXISCAN PROTOCOL COMPLETE Target HR: No Max HR: 109 bpm 77% of Maximum Predicted HR: 153 bpm Exercise duration: 03:21 min:sec, 2 Stage Exercise capacity: 1.0METs Max Blood Pressure: 138/70mmHg Blood Pressure response to exercise: APPROPRIATE Heart Rate response to exercise: APPROPRIATE Chest Pain: No, NONE Angina index: 0 Arrhythmia: Yes, OCCASIONAL PVCS ST Change: No, NONE Deviation: 0 mm INTERPRETATION Stress EKG Conclusion: NUCLEAR REPORT TO FOLLOW EXAM: Myocardial Perfusion REST/STRESS Imaging Protocol The imaging protocol used to acquire images was Rest Tc-99m/stress Tc-99m 1 day Rest Spect myocardial perfusion imaging was performed in supine position 45 minutes following the injection of 12.7 mCi of Tc-99 Myoview. Gated Stress Spect was performed 45 minutes after intravenous 32.5 mCi Tc-99 Myoview injection. The images were gated to evaluate regional wall motion and calculate ventricular ejection fraction.Images were reconstructed using backfilter projection method in short horizontal and verticle long axis. Spect slices were generated. RESTING DATA QST055.85zuQF8.70L/min ESV98.00mlMyocardial Bous461.00g Av. Heart Rate72.00bpm EF45.00% STRESS DATA SPN067.97vnPE0.20L/min ESV90.00mlMyocardial Lhan285.00g EF51.00% Regional WT score at stress:0.00 Regional WM score at stress:0.00 Summed WT score at stress:2.00 Av. Heart Rate76.00bpmSummed WM score at stress:13.00 LV Perf. Quant 17 Seg. SSS11.00 17 Seg. SRS8.00 17 Seg. SDS5.00 Stress Defect Extent (% LAD)13.10Rest Defect Extent (% LAD)1.30Rev. Defect Extent (% LAD)11.90 Stress Defect Extent (% LCX)0.00Rest Defect Extent (% LCX)6.30Rev. Defect Extent (% LCX)0.00 Stress Defect Extent (% RCA)77.80Rest Defect Extent (% RCA)53.30Rev. Defect Extent (% RCA)54.40 Stress Defect Extent (% RAJEEV)22.80Rest Defect Extent (% RAJEEV)15.00Rev. Defect Extent (% RAJEEV)17.40 Other Information Quality:Fair Left Ventricle LV Function:Left ventricle systolic function is low normal. The Ejection Fraction is 45-50%. Conclusion 1. Moderate sized inferior and small apical fixed defects. No stress induced ischemia. EF 45-50%
--- NOTE | 2017-06-11 15:53 | CP.PCM.DIS ---
<Violetta Villatoro - Last Filed: 06/11/17 17:00> Provider - Provider Date of Admission: 06/08/17 10:51 Attending physician: Santi Lisa MD Primary care physician: Dr. Aguayo Consults: Cardiology: Dr. Nava Time Spent in preparation of Discharge (in minutes): 45 Diagnosis - Discharge Diagnosis (1) Syncope Status: Acute (2) Cocaine use Status: Acute (3) Diabetes Status: Acute (4) HTN (hypertension) Status: Acute (5) CAD (coronary artery disease) Status: Acute (6) Dehydration Status: Acute Hospital Course - Lab Results Lab Results: Most Recent Lab Values WBC 5.7 K/uL (4.8-10.8) 06/11/17 07:04 RBC 4.49 Mil/uL (4.40-5.90) 06/11/17 07:04 Hgb 14.6 g/dL (12.0-18.0) 06/11/17 07:04 Hct 42.0 % (35.0-51.0) 06/11/17 07:04 MCV 93.7 fL (80.0-94.0) 06/11/17 07:04 MCH 32.6 pg (27.0-31.0) H 06/11/17 07:04 MCHC 34.7 g/dL (33.0-37.0) 06/11/17 07:04 RDW 13.4 % (11.5-14.5) 06/11/17 07:04 Plt Count 184 K/uL (130-400) 06/11/17 07:04 MPV 8.9 fL (7.2-11.7) 06/11/17 07:04 Neut % (Auto) 51.3 % (50.0-75.0) 06/10/17 08:49 Lymph % (Auto) 34.5 % (20.0-40.0) 06/10/17 08:49 Beadle % (Auto) 8.8 % (0.0-10.0) 06/10/17 08:49 Eos % (Auto) 4.7 % (0.0-4.0) H 06/10/17 08:49 Baso % (Auto) 0.7 % (0.0-2.0) 06/10/17 08:49 Neut # 3.0 K/uL (1.8-7.0) 06/10/17 08:49 Lymph # 2.0 K/uL (1.0-4.3) 06/10/17 08:49 Beadle # 0.5 K/uL (0.0-0.8) 06/10/17 08:49 Eos # 0.3 K/uL (0.0-0.7) 06/10/17 08:49 Baso # 0.0 K/uL (0.0-0.2) 06/10/17 08:49 PT 12.0 SECONDS (9.7-12.2) 06/11/17 07:04 INR 1.1 06/11/17 07:04 D-Dimer, Quantitative < 200 ng/mlDDU (0-243) 06/07/17 14:30 Sodium 134 mmol/L (132-148) 06/11/17 07:04 Potassium 4.0 mmol/L (3.6-5.2) 06/11/17 07:04 Chloride 98 mmol/L (98-107) 06/11/17 07:04 Carbon Dioxide 30 mmol/L (22-30) 06/11/17 07:04 Anion Gap 10 (10-20) 06/11/17 07:04 BUN 25 mg/dL (9-20) H 06/11/17 07:04 Creatinine 1.1 mg/dL (0.8-1.5) 06/11/17 07:04 Est GFR ( Amer) > 60 06/11/17 07:04 Est GFR (Non-Af Amer) > 60 06/11/17 07:04 POC Glucose (mg/dL) 157 mg/dL (65-110) H 06/11/17 06:35 Random Glucose 167 mg/dL (75-110) H 06/11/17 07:04 Hemoglobin A1c 9.5 % (4.2-6.5) H 06/09/17 00:13 Calcium 8.8 mg/dl (8.6-10.4) 06/11/17 07:04 Phosphorus 4.2 mg/dL (2.5-4.5) 06/10/17 08:49 Magnesium 1.7 mg/dL (1.6-2.3) 06/10/17 08:49 Total Bilirubin 0.7 mg/dL (0.2-1.3) 06/10/17 08:49 AST 37 U/L (17-59) 06/10/17 08:49 ALT 46 U/L (21-72) 06/10/17 08:49 Alkaline Phosphatase 67 U/L (38-126) 06/10/17 08:49 Total Creatine Kinase 158 U/L (55-170) 06/07/17 19:33 CK-MB (Mass) 2.38 ng/mL (0.0-3.38) 06/07/17 19:33 Troponin I 0.0330 ng/mL (0.00-0.120) 06/07/17 19:33 Total Protein 6.7 g/dL (6.3-8.3) 06/10/17 08:49 Albumin 3.8 g/dL (3.5-5.0) 06/10/17 08:49 Globulin 2.9 gm/dL (2.2-3.9) 06/10/17 08:49 Albumin/Globulin Ratio 1.3 (1.0-2.1) 06/10/17 08:49 Free T4 1.20 ng/dL (0.78-2.19) 06/08/17 17:20 TSH 3rd Generation 1.25 mIU/L (0.46-4.68) 06/09/17 08:02 Urine Color Straw (YELLOW) 06/06/17 22:45 Urine Clarity Clear (Clear) 06/06/17 22:45 Urine pH 6.0 (5.0-8.0) 06/06/17 22:45 Ur Specific Bronson 1.004 (1.003-1.030) 06/06/17 22:45 Urine Protein Negative mg/dL (NEGATIVE) 06/06/17 22:45 Urine Glucose (UA) Normal mg/dL (Normal) 06/06/17 22:45 Urine Ketones Negative mg/dL (NEGATIVE) 06/06/17 22:45 Urine Blood 2+ (NEGATIVE) H 06/06/17 22:45 Urine Nitrate Negative (NEGATIVE) 06/06/17 22:45 Urine Bilirubin Negative (NEGATIVE) 06/06/17 22:45 Urine Urobilinogen Normal mg/dL (0.2-1.0) 06/06/17 22:45 Ur Leukocyte Esterase Neg Alethea/uL (Negative) 06/06/17 22:45 Urine WBC (Auto) 1 /hpf (0-5) 06/06/17 22:45 Urine RBC (Auto) 1 /hpf (0-3) 06/06/17 22:45 Ur Squamous Epith Cells < 1 /hpf (0-5) 06/06/17 22:45 Urine Opiates Screen Negative (NEGATIVE) 06/07/17 12:26 Urine Methadone Screen Negative (NEGATIVE) 06/07/17 12:26 Ur Barbiturates Screen Negative (NEGATIVE) 06/07/17 12:26 Ur Phencyclidine Scrn Negative (NEGATIVE) 06/07/17 12:26 Ur Amphetamines Screen Negative (NEGATIVE) 06/07/17 12:26 U Benzodiazepines Scrn Negative (NEGATIVE) 06/07/17 12:26 U Oth Cocaine Metabols Positive (NEGATIVE) H 06/07/17 12:26 U Cannabinoids Screen Negative (NEGATIVE) 06/07/17 12:26 - Hospital Course Hospital Course: CC: Chest pain HPI: Patient is a 66 y/o M with PMHx of CAD with open heart surgery, DM, HTN who presents today after a witnessed syncopal episode. Patient says he ate breakfast this morning (eggs, potatoes, salami), but did not have an appetite during the day. Patient only had juice and coffee during the day. At about 7pm patient had one beer. At about 8pm patient sat down to have dinner with his son. After a few bites of dinner, he got up to go to the bathroom and noticed he was dizzy. On the way back from the bathroom he had a syncopal episode and fell to the floor onto his back hitting the right side of his head on the wall. Son saw him fall and said he was unconscious for 1-3 minutes. There was no shaking or seizure activity seen. Patient did not remember what happened, but was not confused after he woke up. Patient had no slurring of words. Sons brought him to the hospital after this episode. Patient says this happened once in the past about a year ago and he believes it was from not eating enough. Currently patient says he feels back to baseline. He has no headache, blurry or double vision, dizziness, lightheadedness, shortness of breath, chest pain, abdominal pain, nausea, vomiting, diarrhea, or constipation. PMD: Dr. Aguayo Pmhx: DM, HTN, CAD Psurg: open heart surgery 2014, cataract surgery b/l Famhx: mom: DM Social: 2 beers once and week and holidays, stopped smoking 5 years ago-- previously 2 cigarettes per day for about 18 years, denies drugs Home medications: Nuvigil 250mg po tab, ASA 81mg po daily, Enalapril 20mg po daily, Metformin 500mg po BID, Metoprolol Succinate 50mg po daily sometimes takes percocet to help him sleep (took one last night), unknown medication for memory Hospital Course: Patient was admitted on 06/06/17 for syncope. Initial EKG () showed normal sinus rhythm, nonspecific intraventricular block, inferior infarct age undetermined, and a T wave abnormality. CT head without contrast was ordered (06/06/17) and showed no acute intracranial abnormality. Urine drug screen was done and was positive for cocaine. Carotid Duplex Scan was ordered ( 06/07/17) because of the syncopal episode, and the report did not suggest hemodynamically significant stenosis of either the right of left extracranial carotid arteries. An echo was also ordered (06/07/17) because of the syncopal episode, and the report showed the left ventricle is mildly dilated, there is mild concentric left ventricular hypertrophy, the systolic function is mildly impaired, left atrium is mildly dilated, mitral regurgitation is mild, there is no tricuspid regurgitation, and there is mild to moderate pulmonary hypertension. Follow-up EKG (06/07/17) showed sinus rhythm with first degree AV block with occasional premature ventricular complexes and premature atrial complexes, nonspecific intraventricular block, inferior infarct and T wave abnormality. Brain MRI was ordered (06/08/17) due to syncopal episode s/p fall, and it showed no acute intracranial hemorrhage or infarct, and minimal chronic white mater ischemic changes and mild age-appropriate volume loss. Chest x-ray was ordered (06/08/17) due to patients cardiac history, and the report noted central pulmonary vasculature appears slightly congested, wanted to rule out developing or mild chronic compensated pulmonary edema/CHF, and questionable tiny bilateral effusions right larger than left. Second chest x-ray was ordered due to abnormal first x-ray (06/08/17) and it showed mild to moderate pulmonary venous congestion and marked cardiomegaly. Cardiology (Dr. Nava) was consulted ( 06/08/17) who initially recommended that the patient go to the [facility] on 06/11, however, patient instead had a myocardial perfusion scan. Results of the test showed moderate sized inferior and small apical fixed defects, and no stress induced ischemia. EF was 45-50%. Throughout patients hospital stay, he was given Aspirin, Vasotec, Lasix, Novolog and Crestor to manage various medical issues. Due to results of exams, to include the stress test, white sourer states patient is stable for discharge. Patient was seen and examined at bedside today (06/11/17), resting comfortably. Patient is stable for discharge to home. The importance of avoiding cocaine (and all drugs) and avoiding beta blockers was discussed and understood by patient. Patient must follow up with their PMD and white sourer within one week of discharge. This is a brief summary of the patients hospital course. Please review EMR for complete record. Discharge Exam - Head Exam Head Exam: ATRAUMATIC, NORMAL INSPECTION - Additional Findings Additional findings: - Constitutional Appears: No Acute Distress - Head Exam Head Exam: ATRAUMATIC, NORMAL INSPECTION - Eye Exam Eye Exam: EOMI, Normal appearance - ENT Exam ENT Exam: Mucous Membranes Moist - Respiratory Exam Respiratory Exam: Clear to Ausculation Bilateral, NORMAL BREATHING PATTERN. absent: Rales, Rhonchi, Wheezes, Respiratory Distress - Cardiovascular Exam Cardiovascular Exam: REGULAR RHYTHM, +S1, +S2, Murmur - GI/Abdominal Exam GI & Abdominal Exam: Soft, Normal Bowel Sounds. absent: Distended, Firm, Guarding, Tenderness - Extremities Exam Extremities Exam: Normal Inspection. absent: Calf Tenderness, Pedal Edema, Tenderness - Neurological Exam Neurological Exam: Alert, Awake, Oriented x3 - Psychiatric Exam Psychiatric exam: Normal Affect, Normal Mood - Skin Skin Exam: Dry, Intact, Normal Color, Warm Discharge Plan - Discharge Medications Prescriptions: Aspirin [Ecotrin] 81 mg PO DAILY #30 tabec diltiaZEM [Cardizem] 120 mg PO DAILY #30 tab Enalapril Maleate [Vasotec] 20 mg PO DAILY #30 tab Rosuvastatin Calcium [Crestor] 10 mg PO HS #30 tab - Follow Up Plan Condition: STABLE Disposition: HOME/ ROUTINE Instructions: Diltiazem (By mouth), Enalapril (By mouth), Aspirin (By mouth), Rosuvastatin (By mouth), Coronary Artery Disease (DC), Heart Healthy Diet (DC), Syncope (DC), Diabetic Foot Care (DC), Basic Carbohydrate Counting (DC), Meal Planning with the Plate Method (DC), Meal Planning with Diabetes Exchanges (DC) Additional Instructions: Patient is stable for discharge to home. Patient must take the following medications below, as prescribed. Aspirin 81mg PO daily: take 1 tablet daily at 9:00 AM Enalipril 20mg PO daily: take 1 tablet daily at 9:00 AM Crestor 10mg PO HS: take 1 table daily in the evening Cardizem CD 120mg PO daily: take 1 tablet daily at 9:00 PM Patient should continue taking home medication, Metformin 500mg PO daily. Patient must stop taking beta blockers- Metoprolol. Patient should follow up with their white sourer, Dr. Estrada, within one week of discharge. Patient should follow up with their PMD, Dr. Aguayo, within one week of discharge. If symptoms reoccur or worsen, patient should return to the ED. Referrals: Ismael Estrada MD [Staff Provider] - Nam Aguayo MD [Staff Provider] - <Telly Hermosillo - Last Filed: 06/11/17 21:50> Provider - Provider Date of Admission: 06/08/17 10:51 Attending physician: aSnti Lisa MD Hospital Course - Lab Results Lab Results: Most Recent Lab Values WBC 5.7 K/uL (4.8-10.8) 06/11/17 07:04 RBC 4.49 Mil/uL (4.40-5.90) 06/11/17 07:04 Hgb 14.6 g/dL (12.0-18.0) 06/11/17 07:04 Hct 42.0 % (35.0-51.0) 06/11/17 07:04 MCV 93.7 fL (80.0-94.0) 06/11/17 07:04 MCH 32.6 pg (27.0-31.0) H 06/11/17 07:04 MCHC 34.7 g/dL (33.0-37.0) 06/11/17 07:04 RDW 13.4 % (11.5-14.5) 06/11/17 07:04 Plt Count 184 K/uL (130-400) 06/11/17 07:04 MPV 8.9 fL (7.2-11.7) 06/11/17 07:04 Neut % (Auto) 51.3 % (50.0-75.0) 06/10/17 08:49 Lymph % (Auto) 34.5 % (20.0-40.0) 06/10/17 08:49 Beadle % (Auto) 8.8 % (0.0-10.0) 06/10/17 08:49 Eos % (Auto) 4.7 % (0.0-4.0) H 06/10/17 08:49 Baso % (Auto) 0.7 % (0.0-2.0) 06/10/17 08:49 Neut # 3.0 K/uL (1.8-7.0) 06/10/17 08:49 Lymph # 2.0 K/uL (1.0-4.3) 06/10/17 08:49 Beadle # 0.5 K/uL (0.0-0.8) 06/10/17 08:49 Eos # 0.3 K/uL (0.0-0.7) 06/10/17 08:49 Baso # 0.0 K/uL (0.0-0.2) 06/10/17 08:49 PT 12.0 SECONDS (9.7-12.2) 06/11/17 07:04 INR 1.1 06/11/17 07:04 D-Dimer, Quantitative < 200 ng/mlDDU (0-243) 06/07/17 14:30 Sodium 134 mmol/L (132-148) 06/11/17 07:04 Potassium 4.0 mmol/L (3.6-5.2) 06/11/17 07:04 Chloride 98 mmol/L (98-107) 06/11/17 07:04 Carbon Dioxide 30 mmol/L (22-30) 06/11/17 07:04 Anion Gap 10 (10-20) 06/11/17 07:04 BUN 25 mg/dL (9-20) H 06/11/17 07:04 Creatinine 1.1 mg/dL (0.8-1.5) 06/11/17 07:04 Est GFR ( Amer) > 60 06/11/17 07:04 Est GFR (Non-Af Amer) > 60 06/11/17 07:04 POC Glucose (mg/dL) 157 mg/dL (65-110) H 06/11/17 06:35 Random Glucose 167 mg/dL (75-110) H 06/11/17 07:04 Hemoglobin A1c 9.5 % (4.2-6.5) H 06/09/17 00:13 Calcium 8.8 mg/dl (8.6-10.4) 06/11/17 07:04 Phosphorus 4.2 mg/dL (2.5-4.5) 06/10/17 08:49 Magnesium 1.7 mg/dL (1.6-2.3) 06/10/17 08:49 Total Bilirubin 0.7 mg/dL (0.2-1.3) 06/10/17 08:49 AST 37 U/L (17-59) 06/10/17 08:49 ALT 46 U/L (21-72) 06/10/17 08:49 Alkaline Phosphatase 67 U/L (38-126) 06/10/17 08:49 Total Creatine Kinase 158 U/L (55-170) 06/07/17 19:33 CK-MB (Mass) 2.38 ng/mL (0.0-3.38) 06/07/17 19:33 Troponin I 0.0330 ng/mL (0.00-0.120) 06/07/17 19:33 Total Protein 6.7 g/dL (6.3-8.3) 06/10/17 08:49 Albumin 3.8 g/dL (3.5-5.0) 06/10/17 08:49 Globulin 2.9 gm/dL (2.2-3.9) 06/10/17 08:49 Albumin/Globulin Ratio 1.3 (1.0-2.1) 06/10/17 08:49 Free T4 1.20 ng/dL (0.78-2.19) 06/08/17 17:20 TSH 3rd Generation 1.25 mIU/L (0.46-4.68) 06/09/17 08:02 Urine Color Straw (YELLOW) 06/06/17 22:45 Urine Clarity Clear (Clear) 06/06/17 22:45 Urine pH 6.0 (5.0-8.0) 06/06/17 22:45 Ur Specific Bronson 1.004 (1.003-1.030) 06/06/17 22:45 Urine Protein Negative mg/dL (NEGATIVE) 06/06/17 22:45 Urine Glucose (UA) Normal mg/dL (Normal) 06/06/17 22:45 Urine Ketones Negative mg/dL (NEGATIVE) 06/06/17 22:45 Urine Blood 2+ (NEGATIVE) H 06/06/17 22:45 Urine Nitrate Negative (NEGATIVE) 06/06/17 22:45 Urine Bilirubin Negative (NEGATIVE) 06/06/17 22:45 Urine Urobilinogen Normal mg/dL (0.2-1.0) 06/06/17 22:45 Ur Leukocyte Esterase Neg Alethea/uL (Negative) 06/06/17 22:45 Urine WBC (Auto) 1 /hpf (0-5) 06/06/17 22:45 Urine RBC (Auto) 1 /hpf (0-3) 06/06/17 22:45 Ur Squamous Epith Cells < 1 /hpf (0-5) 06/06/17 22:45 Urine Opiates Screen Negative (NEGATIVE) 06/07/17 12:26 Urine Methadone Screen Negative (NEGATIVE) 06/07/17 12:26 Ur Barbiturates Screen Negative (NEGATIVE) 06/07/17 12:26 Ur Phencyclidine Scrn Negative (NEGATIVE) 06/07/17 12:26 Ur Amphetamines Screen Negative (NEGATIVE) 06/07/17 12:26 U Benzodiazepines Scrn Negative (NEGATIVE) 06/07/17 12:26 U Oth Cocaine Metabols Positive (NEGATIVE) H 06/07/17 12:26 U Cannabinoids Screen Negative (NEGATIVE) 06/07/17 12:26 Attending/Attestation - Attestation I have personally seen and examined this patient.: Yes I have fully participated in the care of the patient.: Yes I have reviewed all pertinent clinical information, including history, physical exam and plan: Yes Notes (Text): 06/11/17 21:48 Patient was seen and examined at 3 PM 06/11/17 662 A Exam, Assessment and Plan and discharge instructions were thoroughly gone over with the resident. I spoke with Dr. Nava who reviewed stress test and patient is stable for discharge from his standpoint and will need follow up with his white sourer Dr. Estrada. Telly Hermosillo D.O.
[2017-06-11 16:47] VITALS: BP 133/74; TEMP 98.2; O2SAT 99
[2017-06-12] VITALS: PULSE 80
== END 2017-06-11 17:40 | disposition home or self-care (01) | DRG 312 ==
LOC: C.ER 20:52 → C.9E 22:49 → C.6T 23:48 → OBSVTOIN 06-08 10:51
PROVIDERS: ADMIT Family Medicine; ATTEND Family Medicine
DX: R55 Syncope and collapse (principal); E11.649 Type 2 diabetes mellitus with hypoglycemia without coma; F14.90 Cocaine use, unspecified, uncomplicated; I27.20 Pulmonary hypertension, unspecified; W18.30XA Fall on same level, unspecified, initial encounter; E78.00 Pure hypercholesterolemia, unspecified; E86.0 Dehydration; I10 Essential (primary) hypertension; I44.0 Atrioventricular block, first degree; I25.10 Atherosclerotic heart disease of native coronary artery without angina pectoris; I34.0 Nonrheumatic mitral (valve) insufficiency; I45.4 Nonspecific intraventricular block; I49.1 Atrial premature depolarization; E78.5 Hyperlipidemia, unspecified; G47.30 Sleep apnea, unspecified; Z79.82 Long term (current) use of aspirin; Z79.84 Long term (current) use of oral hypoglycemic drugs; Z87.891 Personal history of nicotine dependence; Z95.1 Presence of aortocoronary bypass graft; Z98.42 Cataract extraction status, left eye; Z98.41 Cataract extraction status, right eye; Z96.1 Presence of intraocular lens

== ENCOUNTER 2017-10-02 12:04 | Emergency (ER) | payer MEDICARE, OTHER ==
[2017-10-02 12:04] VITALS: BMI 32.8
[2017-10-02 12:35] VITALS: PULSE 65; O2SAT 100
--- NOTE | 2017-10-02 14:03 | C.PDOC ---
History Of Present Illness 67 year old male presents to the ED for evaluation after he experienced some dizziness while undergoing outpatient lab testing earlier today. Patient has history of Diabetes and was told to be NPO after midnight. Patient states he felt dizziness while getting his blood drawn but felt better after eating cookies and juice. Patient denies vision change, headache, and has no other complaints at this time. Time Seen by Provider: 10/02/17 13:35 Chief Complaint (Nursing): Dizziness/Lightheaded History Per: Patient History/Exam Limitations: no limitations Onset/Duration Of Symptoms: Mins Current Symptoms Are (Timing): Better Activity At Onset Of Symptoms: Sitting Associated Symptoms Preceding Syncopal Episode: No Predromal Symptoms (Sudden Onset) Possible Causative Factor(s): Decreased PO Intake Additional History Per: Patient Past Medical History Reviewed: Historical Data, Nursing Documentation, Vital Signs Vital Signs: Last Vital Signs Temp 98.1 F 10/02/17 14:40 Pulse 65 10/02/17 14:40 Resp 20 10/02/17 14:40 BP 123/70 10/02/17 14:40 Pulse Ox 100 10/02/17 22:39 - Medical History PMH: Diabetes, HTN, Hypercholesterolemia, Peripheral Edema, Seizures (does not remember), Sleep Apnea Denies: Colonic Polyps, Chronic Kidney Disease Surgical History: No Surg Hx Family History: States: Unknown Family Hx - Social History Hx Alcohol Use: Yes Hx Substance Use: No - Immunization History Hx Tetanus Toxoid Vaccination: No Hx Influenza Vaccination: Yes Hx Pneumococcal Vaccination: Yes Review Of Systems Eyes: Negative for: Vision Change Neurological: Positive for: Dizziness. Negative for: Headache Physical Exam - Physical Exam Appears: Non-toxic, No Acute Distress Skin: Normal Color, Warm, Dry Head: Atraumatic, Normacephalic Eye(s): bilateral: Normal Inspection Oral Mucosa: Moist Neck: Supple Chest: Symmetrical, No Deformity, No Tenderness Cardiovascular: Rhythm Regular, No Murmur Respiratory: Normal Breath Sounds, No Rales, No Rhonchi, No Wheezing Extremity: Normal ROM, Capillary Refill (less than 2 seconds ) Neurological/Psych: Oriented x3, Normal Speech, Normal Cognition Gait: Steady ED Course And Treatment O2 Sat by Pulse Oximetry: 100 (on RA ) Pulse Ox Interpretation: Normal Progress Note: EKG ordered and reviewed. Fingerstick unclear. POC 136 Medical Decision Making Medical Decision Making: transient hypoglycemia, resolved with eating snack @ lab testing location FS normal ekg wnl s/s resolved with food normal w/u (except tox + cocaine) 06/01 ok for d/c without repeat w/u. Disposition Doctor Will See Patient In The: Office Counseled Patient/Family Regarding: Studies Performed, Diagnosis - Disposition Referrals: Nam Aguayo MD [Staff Provider] - Disposition: HOME/ ROUTINE Disposition Time: 14:02 Condition: GOOD Additional Instructions: Pide de tu doctor que te NO mireya hacer examanes en ayuno. Sigue con [facility] normal Instructions: Low Blood Sugar, Adult (DC) Forms: [employer] (Nepalese) Print Language: LITHUANIAN - Clinical Impression Clinical Impression: Dizziness, Diabetic hypoglycemia - Scribe Statement The provider has reviewed the documentation as recorded by the Scribe (Carissa Hermosillo) Provider Attestation: All medical record entries made by the Scribe were at my direction and personally dictated by me. I have reviewed the chart and agree that the record accurately reflects my personal performance of the history, physical exam, medical decision making, and the department course for this patient. I have also personally directed, reviewed, and agree with the discharge instructions and disposition.
[2017-10-02 14:42] VITALS: BP 123/70; RESP 20; TEMP 98.1
--- NOTE | 2017-10-03 23:32 | CARD ---
APPROVED REPORT EKG Measurement Heart [id number] <Conclusion> Sinus rhythm with 1st degree AV block with occasional premature ventricular complexes Nonspecific intraventricular block Inferior infarct, age undetermined Abnormal ECG
== END 2017-10-02 14:40 | disposition home or self-care (01) ==
LOC: C.ER 12:04
DX: E11.649 Type 2 diabetes mellitus with hypoglycemia without coma (principal); R42 Dizziness and giddiness; I10 Essential (primary) hypertension

== ENCOUNTER 2018-10-14 11:35 | Observation (INO) | payer OTHER ==
[2018-10-14 12:48] VITALS: BMI 31.3
[2018-10-14 13:39] LABS: SQUAMOUS EPITHIAL 2 /hpf (0-5); URINE BILIRUBIN NEGATIVE (NEGATIVE); URINE BLOOD 3+ (NEGATIVE); URINE CLARITY Hazy (Clear); URINE COLOR Yellow (YELLOW); URINE GLUCOSE (UA) NORMAL (Normal); URINE LEUKOCYTE ESTERASE NEG Leu/uL (Negative); URINE PROTEIN NEGATIVE (NEGATIVE); URINE UROBILINOGEN NORMAL mg/dL (0.2-1.0)
--- NOTE | 2018-10-14 15:27 | C.PDOC ---
History Of Present Illness 68 y/o male presents to the ER complaining of intermittent "pinkish" colored urine with clots which has been present for the past 1 month. Patient states that he was in the [place]. At the time, he needed urinary catheter for retention for a few days. Patient reports that he saw his PMD a few days ago and he has appointment with urologist in November 2018. However, he decided to come to the ER because he wanted to be evaluated now. Denies having fever, chills, abdominal pain, and dysuria. Time Seen by Provider: 10/14/18 13:00 Chief Complaint (Nursing): GI Problem History Per: Patient History/Exam Limitations: no limitations Onset/Duration Of Symptoms: Days Current Symptoms Are (Timing): Still Present Severity: Moderate Past Medical History Reviewed: Historical Data, Nursing Documentation, Vital Signs Vital Signs: Last Vital Signs Temp Pulse 57 L 10/14/18 14:32 Resp 18 10/14/18 14:32 BP 155/75 H 10/14/18 14:32 Pulse Ox 99 10/14/18 14:32 - Medical History PMH: Diabetes, HTN, Hypercholesterolemia, Peripheral Edema, Seizures (does not remember), Sleep Apnea Denies: Colonic Polyps, Chronic Kidney Disease Other Surgeries: Hx of surgeries Family History: States: No Known Family Hx - Social History Hx Alcohol Use: Yes Hx Substance Use: No - Immunization History Hx Tetanus Toxoid Vaccination: No Hx Influenza Vaccination: Yes Hx Pneumococcal Vaccination: Yes Review Of Systems Constitutional: Negative for: Fever, Chills Gastrointestinal: Negative for: Nausea, Vomiting, Abdominal Pain Genitourinary: Positive for: Hematuria. Negative for: Dysuria, Frequency Physical Exam - Physical Exam Appears: Non-toxic, No Acute Distress Skin: Normal Color, Warm, Dry Head: Atraumatic, Normacephalic Eye(s): bilateral: Normal Inspection Nose: Normal Oral Mucosa: Moist Neck: Supple Chest: Symmetrical Cardiovascular: Rhythm Regular Respiratory: Normal Breath Sounds, No Rales, No Rhonchi, No Wheezing Gastrointestinal/Abdominal: Normal Exam, Soft, No Tenderness, No Guarding, No Rebound Rectal: Other (performed by who notes that prostate is "hard") Back: No CVA Tenderness Neurological/Psych: Oriented x3, Normal Speech ED Course And Treatment - Laboratory Results Result Diagrams: 10/14/18 16:11 10/14/18 16:11 Lab Results: Urine Color Yellow (YELLOW) 10/14/18 13:29 Urine Clarity Hazy (Clear) 10/14/18 13:29 Urine pH 6.0 (5.0-8.0) 10/14/18 13:29 Ur Specific [place] 1.014 (1.003-1.030) 10/14/18 13:29 Urine Protein Negative mg/dL (NEGATIVE) 10/14/18 13:29 Urine Glucose (UA) Normal mg/dL (Normal) 10/14/18 13:29 Urine Ketones Negative mg/dL (NEGATIVE) 10/14/18 13:29 Urine Blood 3+ (NEGATIVE) H 10/14/18 13:29 Urine Nitrate Negative (NEGATIVE) 10/14/18 13:29 Urine Bilirubin Negative (NEGATIVE) 10/14/18 13:29 Urine Urobilinogen Normal mg/dL (0.2-1.0) 10/14/18 13:29 Ur Leukocyte Esterase Neg Alethea/uL (Negative) 10/14/18 13:29 Urine WBC (Auto) 5 /hpf (0-5) 10/14/18 13:29 Urine RBC (Auto) 1039 /hpf (0-3) H 10/14/18 13:29 Ur Squamous Epith Cells 2 /hpf (0-5) 10/14/18 13:29 O2 Sat by Pulse Oximetry: 99 (RA) Pulse Ox Interpretation: Normal - CT Scan/US CT- Abd & Pelv. Other Rad Studies (CT/US): Read By Radiologist, Radiology Report Reviewed CT/US Interpretation: IMPRESSION: Unilateral, left upper tract calculus disease. Negative study for hydronephrosis or hydroureter. Normal urinary bladder wall thickness. No intraluminal abnormalities. Mild prostatic enlargement with periprosthetic inflammatory change. Medical Decision Making Medical Decision Making: Plan: --Labs --UA --Urine Culture --CT- Abd & Pelv. Updates: Paperwork from [facility] shows that patient has elevated PSA levels. 15:30 evaluated patient. discussed with Dr Trivedi. wants pt admitted for prostate biopsy. discussed with Dr Pozo, will admot to Dr Vaughan. (pt of Dr Kaur, who admits to hosptialist) Disposition Discussed With DrJoon: Geoffrey Vaughan Doctor Will See Patient In The: Hospital - Disposition Disposition: HOSPITALIZED Disposition Time: 18:51 Condition: GOOD Forms: [facility] (Mexican) - Clinical Impression Clinical Impression: Hematuria, Enlarged prostate with lower urinary tract symptoms (LUTS) - PA / FLUX TUBE ATTENDANT / Resident Statement MD/DO has reviewed & agrees with the documentation as recorded. - Scribe Statement The provider has reviewed the documentation as recorded by the Scribe Chandrika Pickens Provider Attestation All medical record entries made by the Jasonibe were at my direction and personally dictated by me. I have reviewed the chart and agree that the record accurately reflects my personal performance of the history, physical exam, medical decision making, and the department course for this patient. I have also personally directed, reviewed, and agree with the discharge instructions and disposition.
[2018-10-14 16:14] LABS: BASO # 0.1 K/uL (0.0-0.2); BASO % 1.2 % (0.0-2.0); EOS # 0.3 K/uL (0.0-0.7); EOS % 5.6 % (0.0-4.0); HEMOGLOBIN 14.4 g/dL (12.0-18.0); LYMPH % 32.1 % (20.0-40.0); MEAN CELL VOLUME 94.4 fL (80.0-94.0); MEAN CORPUSCULAR HEMOGLOBIN 32.2 pg (27.0-31.0); MEAN CORPUSCULAR HGB CONC 34.1 g/dL (33.0-37.0); MEAN PLATELET VOLUME 8.2 fL (7.2-11.7); MONO # 0.6 K/uL (0.0-0.8); MONO % 9.7 % (0.0-10.0); NEUT # 3.2 K/uL (1.8-7.0); NEUT % 51.4 % (50.0-75.0); RBC 4.47 Mil/uL (4.40-5.90); RED CELL DISTRIBUTION WIDTH 13.7 % (11.5-14.5); WHITE BLOOD COUNT 6.1 K/uL (4.8-10.8)
[2018-10-14 16:29] LABS: ALB/GLOB RATIO 1.2 (1.0-2.1); ALBUMIN 4.4 g/dL (3.5-5.0); ALT/SGPT 19 U/L (21-72); AST/SGOT 36 U/L (17-59); BLOOD UREA NITROGEN 19 mg/dL (9-20); CALCIUM 9.8 mg/dl (8.6-10.4); GFR NON-AFRICAN AMERICAN > 60
[2018-10-14] MEDS ORDERED: Iodixanol 320 MG/ML 100 ML BOTTLE IV ONE (16:58)
--- NOTE | 2018-10-14 17:55 | CT ---
Date of service: 10/14/2018 PROCEDURE: CT Abdomen and Pelvis with and without intravenous contrast HISTORY: hematuria, enlarged prostate possible kidney stone COMPARISON: None. TECHNIQUE: Axial images of the abdomen were obtained in the pre contrast, portal venous and delayed phases of enhancement. Coronal and sagittal reformats were generated. Contrast dose: Radiation dose: Total exam DLP = 3641.9 mGy-cm. This CT exam was performed using one or more of the following dose reduction techniques: Automated exposure control, adjustment of the mA and/or kV according to patient size, and/or use of iterative reconstruction technique. FINDINGS: LOWER THORAX: Incompletely visualize cardiomegaly. Interlobular septal thickening and airspace disease incompletely visualized consistent with pulmonary vascular congestion. LIVER: Unremarkable. No gross lesion or ductal dilatation. GALLBLADDER AND BILE DUCTS: Unremarkable. PANCREAS: Unremarkable. No gross lesion or ductal dilatation. SPLEEN: Unremarkable. ADRENALS: Unremarkable. No mass. KIDNEYS AND URETERS: Left kidney: Lower pole collecting system calculus 1.4 x 1.5 x 1.8 cm. VASCULATURE: Unremarkable. No aortic aneurysm. Atherosclerotic calcification and mural plaque present. Findings are seen throughout the aorta BOWEL: Diverticulosis without an acute inflammatory component or other associated pathologic process. APPENDIX: A normal appendix is visualized in it's entirety. PERITONEUM: Unremarkable. No free fluid. No free air. LYMPH NODES: Unremarkable. No enlarged lymph nodes. BLADDER: Normal bladder wall thickness. Prostate impresses upon the base of the bladder. REPRODUCTIVE: Mildly enlarged prostate with respect to size measures 4.6 x 4.9 cm. Mild stranding of the periprostatic tissues including seminal vesicles a nonspecific finding can be seen with prostatitis. BONES: No acute fracture. OTHER FINDINGS: None. IMPRESSION: Unilateral, left upper tract calculus disease. Negative study for hydronephrosis or hydroureter. Normal urinary bladder wall thickness. No intraluminal abnormalities. Mild prostatic enlargement with periprosthetic inflammatory change.
--- NOTE | 2018-10-14 19:16 | CP.PCM.HP ---
<Geoffrey Vaughan P - Last Filed: 10/15/18 08:21> Meds Home Medications: Home Medication List Medication Instructions Recorded Confirmed Type Enalapril Maleate [Vasotec] 20 mg PO DAILY tab 10/15/18 Rx Rosuvastatin Calcium [Crestor] 10 mg PO HS tab 10/15/18 Rx Allergies/Adverse Reactions: Allergies Allergy/AdvReac Type Severity Reaction Status Date / Time No Known Allergies Allergy Verified 10/14/18 12:47 Results - Vital Signs Recent Vital Signs: Last Vital Signs Temp 97.9 F 10/15/18 00:21 Pulse 78 10/15/18 00:21 Resp 20 10/15/18 00:21 BP 133/79 10/15/18 00:21 Pulse Ox 96 10/15/18 00:21 - Labs Result Diagrams: 10/15/18 07:25 10/15/18 07:47 Labs: Laboratory Results - last 24 hr 10/14/18 10/14/18 10/14/18 13:29 14:09 16:11 WBC 6.1 RBC 4.47 Hgb 14.4 Hct 42.2 MCV 94.4 H MCH 32.2 H MCHC 34.1 RDW 13.7 Plt Count 227 MPV 8.2 Neut % (Auto) 51.4 Lymph % (Auto) 32.1 Sunflower % (Auto) 9.7 Eos % (Auto) 5.6 H Baso % (Auto) 1.2 Neut # (Auto) 3.2 Lymph # (Auto) 2.0 Sunflower # (Auto) 0.6 Eos # (Auto) 0.3 Baso # (Auto) 0.1 PT INR APTT Sodium Potassium Chloride Carbon Dioxide Anion Gap BUN Creatinine Est GFR ( Amer) Est GFR (Non-Af Amer) POC Glucose (mg/dL) 152 H Random Glucose Calcium Total Bilirubin AST ALT Alkaline Phosphatase Total Protein Albumin Globulin Albumin/Globulin Ratio Urine Color Yellow Urine Clarity Hazy Urine pH 6.0 Ur Specific [place] 1.014 Urine Protein Negative Urine Glucose (UA) Normal Urine Ketones Negative Urine Blood 3+ H Urine Nitrate Negative Urine Bilirubin Negative Urine Urobilinogen Normal Ur Leukocyte Esterase Neg Urine WBC (Auto) 5 Urine RBC (Auto) 1039 H Ur Squamous Epith Cells 2 10/14/18 10/14/18 10/15/18 16:11 18:17 07:06 WBC RBC Hgb Hct MCV MCH MCHC RDW Plt Count MPV Neut % (Auto) Lymph % (Auto) Sunflower % (Auto) Eos % (Auto) Baso % (Auto) Neut # (Auto) Lymph # (Auto) Sunflower # (Auto) Eos # (Auto) Baso # (Auto) PT INR APTT Sodium 139 Potassium 4.8 Chloride 103 Carbon Dioxide 31 H Anion Gap 11 BUN 19 Creatinine 0.9 Est GFR ( Amer) > 60 Est GFR (Non-Af Amer) > 60 POC Glucose (mg/dL) 111 H 161 H Random Glucose 116 H D Calcium 9.8 Total Bilirubin 0.4 AST 36 ALT 19 L D Alkaline Phosphatase 92 Total Protein 8.1 Albumin 4.4 Globulin 3.7 Albumin/Globulin Ratio 1.2 Urine Color Urine Clarity Urine pH Ur Specific [place] Urine Protein Urine Glucose (UA) Urine Ketones Urine Blood Urine Nitrate Urine Bilirubin Urine Urobilinogen Ur Leukocyte Esterase Urine WBC (Auto) Urine RBC (Auto) Ur Squamous Epith Cells 10/15/18 10/15/18 10/15/18 07:25 07:25 07:47 WBC 5.9 RBC 4.16 L Hgb 13.3 Hct 39.4 MCV 94.8 H MCH 31.9 H MCHC 33.7 RDW 13.4 Plt Count 200 MPV 8.8 Neut % (Auto) 59.8 Lymph % (Auto) 24.2 Sunflower % (Auto) 10.8 H Eos % (Auto) 4.5 H Baso % (Auto) 0.7 Neut # (Auto) 3.5 Lymph # (Auto) 1.4 Sunflower # (Auto) 0.6 Eos # (Auto) 0.3 Baso # (Auto) 0.0 PT 12.7 H INR 1.2 APTT 36 H Sodium 138 Potassium 4.5 Chloride 102 Carbon Dioxide 33 H Anion Gap 9 L BUN 18 Creatinine 1.0 Est GFR ( Amer) > 60 Est GFR (Non-Af Amer) > 60 POC Glucose (mg/dL) Random Glucose 155 H D Calcium 9.5 Total Bilirubin 0.4 AST 36 ALT 27 Alkaline Phosphatase 102 Total Protein 7.1 Albumin 4.0 Globulin 3.1 Albumin/Globulin Ratio 1.3 Urine Color Urine Clarity Urine pH Ur Specific [place] Urine Protein Urine Glucose (UA) Urine Ketones Urine Blood Urine Nitrate Urine Bilirubin Urine Urobilinogen Ur Leukocyte Esterase Urine WBC (Auto) Urine RBC (Auto) Ur Squamous Epith Cells Attending/Attestation - Attestation I have personally seen and examined this patient.: Yes I have fully participated in the care of the patient.: Yes I have reviewed all pertinent clinical information: Yes Notes (Text): 10/15/18 08:22 Intermittent hematuria, H/o CAD CABG no recent stent, on ASA and plavix, EF 40% 2017, chf, ? angina, mitral area systolic murmur suggesting regurg. left kidney lower pose large calculus Irregularity in the rhythm, pending ekg DM on metformin Plan Will discus with pt's lace mender if asa/plavix could held for biposy Echo due to h/o anginal symptoms, eval of mitral area murmur Elective prostate biopsy hold on metformin for [address] contrast dye pt receive See orders for detail. 10/15/18 08:34 <Shaina Schuster P - Last Filed: 10/15/18 13:53> History of Present Illness - History of Present Illness History of Present Illness: H&P for Dr. Vaughan. 68 year old male with PMHx of CAD with CABG, DM, HTN, HLD, Sleep apnea, and kidney stones presents to ED complaining of intermittent hematuria with clots for the past 3 weeks. Patient states symptoms [place] an ambulatory clinic and prescribed "antibiotics, a prostate pill, and a kidney stone pill." Patient states symptoms have improved with treatment, however not resolved. Associated symptoms include frequency and difficulty initiating stream, which is painful. Patient denies fever, chills, burning on urination, nausea, vomiting, diarrhea, constipation, dizziness, headache. Patient states he had an appointment to see a urologist in November, but could not wait that long. PMHx: CAD with CABG, DM, HTN, HLD, Sleep apnea, kidney stones, seizures PSHx: CABG 2012, bilateral cataracts Allergies: NKDA Family Hx: Mother at 59 years old from DM and HTN Social: Former sporadic smoker, denies alcohol and illicit drug use. Lives with . Review of Systems: -Gen: No fever, No chills, No headache, No lethargy, No weakness. -HEENT: No dizziness, No change in vision, No change in hearing, No sore throat, No dysphagia, No nasal congestion, No mucous. -Cardio: No chest pain, No palpitations, No lower extremity edema, No orthopnea. -Resp: No cough, No dyspnea, No hemoptysis, No wheezing, No pain on inspiration. -GI: No abdominal pain, No nausea/vomiting, No diarrhea/constipation, No hematochezia, No hematemesis. -: +painful urination, +urinary freq, No incontinence, + hematuria, + change in urinary stream. -MSK: No back pain, No muscle weakness, No radiating pain. -Skin: No itching, No rash, No lesions. -Neuro: No confusion, No numbness, No tingling, No focal weakness, No radicular pain, No syncope. -Psych: No anxiety, No depression, No H/I, No S/I, No hallucinations. Present on Admission - Present on Admission Any Indicators Present on Admission: No Past Patient History - Infectious Disease Hx of Infectious Diseases: None - Past Medical History & Family History Past Medical History?: Yes - Past Social History Smoking Status: Never Smoked - CARDIAC Hx Hypercholesterolemia: Yes Hx Hypertension: Yes Hx Peripheral Edema: Yes - PULMONARY Hx Sleep Apnea: Yes - NEUROLOGICAL Hx Seizures: Yes (does not remember) - HEENT Hx HEENT Problems: Yes Hx Cataracts: Yes (bilat iol) - RENAL Hx Chronic Kidney Disease: No - ENDOCRINE/METABOLIC Hx Endocrine Disorders: Yes Hx Diabetes Mellitus Type 2: Yes - HEMATOLOGICAL/ONCOLOGICAL Hx Blood Disorders: Yes - INTEGUMENTARY Hx Dermatological Problems: No - MUSCULOSKELETAL/RHEUMATOLOGICAL Hx Musculoskeletal Disorders: Yes Hx Falls: No Hx Osteoarthritis: Yes - GASTROINTESTINAL Hx Gastrointestinal Disorders: No - GENITOURINARY/GYNECOLOGICAL Hx Genitourinary Disorders: No - PSYCHIATRIC Hx Substance Use: No - SURGICAL HISTORY Hx Surgeries: Yes Hx Cataract Extraction: Yes Hx Cardiac Catheterization: Yes (5 yrs ago) Hx Open Heart Surgery: Yes (2013) Other/Comment: no further information given by patient - ANESTHESIA Hx Anesthesia: Yes Hx Anesthesia Reactions: No Hx Malignant Hyperthermia: No Physical Exam - Constitutional Appears: Non-toxic, No Acute Distress - Head Exam Head Exam: ATRAUMATIC, NORMOCEPHALIC - Eye Exam Eye Exam: EOMI, PERRL Pupil Exam: NORMAL ACCOMODATION - ENT Exam ENT Exam: Mucous Membranes Moist - Neck Exam Neck exam: Positive for: Full Rom, Normal Inspection. Negative for: Lymphadenopathy - Respiratory Exam Respiratory Exam: Clear to Auscultation Bilateral, NORMAL BREATHING PATTERN. absent: Rales, Rhonchi, Wheezes - Cardiovascular Exam Cardiovascular Exam: Irregular Rhythm, +S1, +S2, Systolic Murmur (3/6 best heard over mitral area) - GI/Abdominal Exam GI & Abdominal Exam: Normal Bowel Sounds, Soft. absent: Distended, Guarding, Rebound, Rigid, Tenderness - Extremities Exam Extremities exam: Positive for: normal capillary refill, normal inspection, pedal pulses present. Negative for: calf tenderness, pedal edema, tenderness - Back Exam Back exam: absent: CVA tenderness (L), CVA tenderness (R) - Neurological Exam Neurological exam: Alert, CN II-XII Intact, Oriented x3 - Psychiatric Exam Psychiatric exam: Normal Affect, Normal Mood - Skin Skin Exam: Dry, Intact, Normal Color, Warm Results - Vital Signs Recent Vital Signs: Last Vital Signs Temp 98.8 F 10/14/18 18:19 Pulse 59 L 10/14/18 18:19 Resp 12 10/14/18 18:19 BP 170/82 H 10/14/18 18:19 Pulse Ox 99 10/14/18 18:52 - Labs Result Diagrams: 10/15/18 07:25 10/15/18 07:47 Labs: Laboratory Results - last 24 hr 10/14/18 10/14/18 10/14/18 13:29 14:09 16:11 WBC 6.1 RBC 4.47 Hgb 14.4 Hct 42.2 MCV 94.4 H MCH 32.2 H MCHC 34.1 RDW 13.7 Plt Count 227 MPV 8.2 Neut % (Auto) 51.4 Lymph % (Auto) 32.1 Sunflower % (Auto) 9.7 Eos % (Auto) 5.6 H Baso % (Auto) 1.2 Neut # (Auto) 3.2 Lymph # (Auto) 2.0 Sunflower # (Auto) 0.6 Eos # (Auto) 0.3 Baso # (Auto) 0.1 Sodium Potassium Chloride Carbon Dioxide Anion Gap BUN Creatinine Est GFR ( Amer) Est GFR (Non-Af Amer) POC Glucose (mg/dL) 152 H Random Glucose Calcium Total Bilirubin AST ALT Alkaline Phosphatase Total Protein Albumin Globulin Albumin/Globulin Ratio Urine Color Yellow Urine Clarity Hazy Urine pH 6.0 Ur Specific [place] 1.014 Urine Protein Negative Urine Glucose (UA) Normal Urine Ketones Negative Urine Blood 3+ H Urine Nitrate Negative Urine Bilirubin Negative Urine Urobilinogen Normal Ur Leukocyte Esterase Neg Urine WBC (Auto) 5 Urine RBC (Auto) 1039 H Ur Squamous Epith Cells 2 10/14/18 10/14/18 16:11 18:17 WBC RBC Hgb Hct MCV MCH MCHC RDW Plt Count MPV Neut % (Auto) Lymph % (Auto) Sunflower % (Auto) Eos % (Auto) Baso % (Auto) Neut # (Auto) Lymph # (Auto) Sunflower # (Auto) Eos # (Auto) Baso # (Auto) Sodium 139 Potassium 4.8 Chloride 103 Carbon Dioxide 31 H Anion Gap 11 BUN 19 Creatinine 0.9 Est GFR ( Amer) > 60 Est GFR (Non-Af Amer) > 60 POC Glucose (mg/dL) 111 H Random Glucose 116 H D Calcium 9.8 Total Bilirubin 0.4 AST 36 ALT 19 L D Alkaline Phosphatase 92 Total Protein 8.1 Albumin 4.4 Globulin 3.7 Albumin/Globulin Ratio 1.2 Urine Color Urine Clarity Urine pH Ur Specific [place] Urine Protein Urine Glucose (UA) Urine Ketones Urine Blood Urine Nitrate Urine Bilirubin Urine Urobilinogen Ur Leukocyte Esterase Urine WBC (Auto) Urine RBC (Auto) Ur Squamous Epith Cells Assessment & Plan - Assessment and Plan (Free Text) Plan: 68 year old male with hematuria Hematuria CT abdomen: L upper tract calculus disease, no hydronephrosis, mild prostate enlargement with inflammatory changes. See full report Urology, Dr. Trivedi consulted- plan for prostate biopsy Acetaminophen 650 Q6H PRN pain Hx of CAD with CABG Echo 2017: EF40% f/u Echo Hold Aspirin and Plavix -Day team to reach out to Pt's lace mender, Dr. Malcolm Estrada regarding holding meds Ranexa 250mg PO daily Arrhythmia f/u EKG HTN Enalapril 20mg PO daily Hx of DM Hold Metformin ER 500mg due to IV contrast Hx of HLD Crestor 10mg PO HS Hx of Sleep apnea Patient's Armodafinil not on formulary- patient should bring home medicine Hx of Seizure disorder Patient unsure of medication-Reconcile medication with patient's pharmacy PPx hold VTE secondary to hematuria Discussed with Dr. Vaughan. Shaina Schuster, PGY-1
[2018-10-14] MEDS ORDERED: MethylPREDNISolone 40 mg Vial IVP STA (22:16)
[2018-10-14 22:37] VITALS: RESP 20
[2018-10-15] MEDS ORDERED: Dextrose 50% SYRINGE Inj (50 ml) IV PRN (04:46)
[2018-10-15] MEDS ORDERED: Glucagon Recombinant 1 mg Inj IM PRN (04:46)
[2018-10-15 07:35] LABS: EOS # 0.3 K/uL (0.0-0.7); HEMOGLOBIN 13.3 g/dL (12.0-18.0); LYMPH # 1.4 K/uL (1.0-4.3); NEUT # 3.5 K/uL (1.8-7.0); WHITE BLOOD COUNT 5.9 K/uL (4.8-10.8)
[2018-10-15 07:52] LABS: BASO % 0.7 % (0.0-2.0); EOS % 4.5 % (0.0-4.0); LYMPH % 24.2 % (20.0-40.0); MEAN CELL VOLUME 94.8 fL (80.0-94.0); MEAN CORPUSCULAR HEMOGLOBIN 31.9 pg (27.0-31.0); MEAN CORPUSCULAR HGB CONC 33.7 g/dL (33.0-37.0); MEAN PLATELET VOLUME 8.8 fL (7.2-11.7); MONO # 0.6 K/uL (0.0-0.8); MONO % 10.8 % (0.0-10.0); NEUT % 59.8 % (50.0-75.0); NRBC % 0.2 % (0.0-2.0); RBC 4.16 Mil/uL (4.40-5.90); RED CELL DISTRIBUTION WIDTH 13.4 % (11.5-14.5)
[2018-10-15 07:56] LABS: INR 1.2; PROTHROMBIN TIME 12.7 SECONDS (9.7-12.2)
[2018-10-15 08:04] LABS: ALB/GLOB RATIO 1.3 (1.0-2.1); ALT/SGPT 27 U/L (21-72); AST/SGOT 36 U/L (17-59); BLOOD UREA NITROGEN 18 mg/dL (9-20); CALCIUM 9.5 mg/dl (8.6-10.4); GFR NON-AFRICAN AMERICAN > 60
[2018-10-15 08:24] VITALS: PULSE 66; TEMP 98.2; O2SAT 95
[2018-10-15 09:40] VITALS: BP 140/70
[2018-10-15] MEDS ORDERED: Ranolazine 500 mg Extended Release Tablets PO SCH (10:00)
--- NOTE | 2018-10-15 12:53 | CP.PCM.DIS ---
Provider - Provider Date of Admission: 10/14/18 18:52 Attending physician: Geoffrey Vaughan MD Consults: 10/14/18 15:18 Urology Consult Stat Comment: Consulting Provider: Jesse Trivedi Consulting Physician: Jesse Trivedi Reason for Consult: hematuria Time Spent in preparation of Discharge (in minutes): 35 Diagnosis - Discharge Diagnosis (1) CAD (coronary artery disease) of artery bypass graft Status: Chronic (2) Hyperlipemia Status: Chronic (3) Sleep apnea Status: Chronic (4) Diabetes Status: Chronic (5) HTN (hypertension) Status: Chronic (6) Hematuria Status: Acute Hospital Course - Lab Results Lab Results: Most Recent Lab Values WBC 5.9 K/uL (4.8-10.8) 10/15/18 07:25 RBC 4.16 Mil/uL (4.40-5.90) L 10/15/18 07:25 Hgb 13.3 g/dL (12.0-18.0) 10/15/18 07:25 Hct 39.4 % (35.0-51.0) 10/15/18 07:25 MCV 94.8 fL (80.0-94.0) H 10/15/18 07:25 MCH 31.9 pg (27.0-31.0) H 10/15/18 07:25 MCHC 33.7 g/dL (33.0-37.0) 10/15/18 07:25 RDW 13.4 % (11.5-14.5) 10/15/18 07:25 Plt Count 200 K/uL (130-400) 10/15/18 07:25 MPV 8.8 fL (7.2-11.7) 10/15/18 07:25 Neut % (Auto) 59.8 % (50.0-75.0) 10/15/18 07:25 Lymph % (Auto) 24.2 % (20.0-40.0) 10/15/18 07:25 [place] % (Auto) 10.8 % (0.0-10.0) H 10/15/18 07:25 Eos % (Auto) 4.5 % (0.0-4.0) H 10/15/18 07:25 Baso % (Auto) 0.7 % (0.0-2.0) 10/15/18 07:25 Neut # (Auto) 3.5 K/uL (1.8-7.0) 10/15/18 07:25 Lymph # (Auto) 1.4 K/uL (1.0-4.3) 10/15/18 07:25 [place] # (Auto) 0.6 K/uL (0.0-0.8) 10/15/18 07:25 Eos # (Auto) 0.3 K/uL (0.0-0.7) 10/15/18 07:25 Baso # (Auto) 0.0 K/uL (0.0-0.2) 10/15/18 07:25 PT 12.7 SECONDS (9.7-12.2) H 10/15/18 07:25 INR 1.2 10/15/18 07:25 APTT 36 SECONDS (21-34) H 10/15/18 07:25 Sodium 138 mmol/L (132-148) 10/15/18 07:47 Potassium 4.5 mmol/L (3.6-5.2) 10/15/18 07:47 Chloride 102 mmol/L (98-107) 10/15/18 07:47 Carbon Dioxide 33 mmol/L (22-30) H 10/15/18 07:47 Anion Gap 9 (10-20) L 10/15/18 07:47 BUN 18 mg/dL (9-20) 10/15/18 07:47 Creatinine 1.0 mg/dL (0.8-1.5) 10/15/18 07:47 Est GFR ( Amer) > 60 10/15/18 07:47 Est GFR (Non-Af Amer) > 60 10/15/18 07:47 POC Glucose (mg/dL) 262 mg/dL (65-110) H 10/15/18 11:22 Random Glucose 155 mg/dL (75-110) H D 10/15/18 07:47 Calcium 9.5 mg/dl (8.6-10.4) 10/15/18 07:47 Total Bilirubin 0.4 mg/dL (0.2-1.3) 10/15/18 07:47 AST 36 U/L (17-59) 10/15/18 07:47 ALT 27 U/L (21-72) 10/15/18 07:47 Alkaline Phosphatase 102 U/L (38-126) 10/15/18 07:47 Total Protein 7.1 g/dL (6.3-8.3) 10/15/18 07:47 Albumin 4.0 g/dL (3.5-5.0) 10/15/18 07:47 Globulin 3.1 gm/dL (2.2-3.9) 10/15/18 07:47 Albumin/Globulin Ratio 1.3 (1.0-2.1) 10/15/18 07:47 Urine Color Yellow (YELLOW) 10/14/18 13:29 Urine Clarity Hazy (Clear) 10/14/18 13:29 Urine pH 6.0 (5.0-8.0) 10/14/18 13:29 Ur Specific [place] 1.014 (1.003-1.030) 10/14/18 13:29 Urine Protein Negative mg/dL (NEGATIVE) 10/14/18 13:29 Urine Glucose (UA) Normal mg/dL (Normal) 10/14/18 13:29 Urine Ketones Negative mg/dL (NEGATIVE) 10/14/18 13:29 Urine Blood 3+ (NEGATIVE) H 10/14/18 13:29 Urine Nitrate Negative (NEGATIVE) 10/14/18 13:29 Urine Bilirubin Negative (NEGATIVE) 10/14/18 13:29 Urine Urobilinogen Normal mg/dL (0.2-1.0) 10/14/18 13:29 Ur Leukocyte Esterase Neg Alethea/uL (Negative) 10/14/18 13:29 Urine WBC (Auto) 5 /hpf (0-5) 10/14/18 13:29 Urine RBC (Auto) 1039 /hpf (0-3) H 10/14/18 13:29 Ur Squamous Epith Cells 2 /hpf (0-5) 10/14/18 13:29 - Hospital Course Hospital Course: On admission: 68 year old male with PMHx of CAD with CABG, DM, HTN, HLD, Sleep apnea, and kid og stones presents to ED complaining of intermittent hematuria with clots for the past 3 weeks. Patient states symptoms began while he was in the where he was seen at an ambulatory clinic and prescribed "antibiotics, a prostate pill, and a kidney stone pill." Patient states symptoms have improved with treatment, however not resolved. Associated symptoms include frequency and difficulty initiating stream, which is painful. Patient denies fever, chills, burning on urination, nausea, vomiting, diarrhea, constipation, dizziness, headache. Patient states he had an appointment to see a urologist in November, but could not wait that long. Hospital course: Abdominal CT w/ w/o IV contrast showed unilateral, left upper tract calculus disease. No hydronephrosis or hydroureter. Normal urinary bladder thickness. No intraluminal abnormalities. Mild prostatic enlargement with periprosthetic inflammatory change. US showed 3+ blood 1039 RBCs. CXR showed cardiomegaly, no acute findings. Echocardiogram was ordered, reading pending. Urine culture was negative for growth. Case discussed with Dr. Aguayo, who confirmed meds and pt medical history. Translation obtained from [employer] and pt was informed to follow up with Dr. Aguayo for arranging an earlier urologist appointment. 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 Approximately 400 cc of clear yellow urine was seen at pt's bedside. On discharge interview provided with translation by [employer], pt denies any complaints. Denies fever, chills, chest pain, sob, abdominal pain, n/v/d, hematochezia, melena, dysuria, urinary frequency, hematuria, penile discharge, headache, dizziness, numbness or tingling, lightheadedness. This is a summary of the hospital course. Please see EMR for full details. Pt is medically stable for discharge home as per Dr. Ed Hermosillo. Pt has home prescriptions filled already, as below: Lipitor 10 mg PO once daily Lasix 20 mg PO once daily Carzidem 120 mg PO once daily Plavix 75 mg PO once daily Vasotec 20 mg PO once daily ASA 81 mg PO once daily Lamictal 200 mg PO twice daily Tradjenta 5 mg PO once daily Metformin 500 mg PO twice daily Please resume taking Metformin on , 10/17/18, morning with breakfast Omeprazole 40 mg PO once daily Please call Dr. Aguayo's office to obtain help to get earlier Urologist appointment. Please follow up with your Logistics Intern, Dr. Estrada, to go over the echocardiogram that was performed today. A per Dr. Whitehead's instruction make sure to follow up with Dr. Madrigal (Gastroenterology) and Dr. Gage Yu (Hematology/Oncology) Should symptoms worsen, please head to nearest Emergency Department for further evaluation. Instructions explained to the pt, who understands and agrees with discharge plan. Discharge Exam - Head Exam Head Exam: ATRAUMATIC, NORMAL INSPECTION - Eye Exam Eye Exam: EOMI, Normal appearance - ENT Exam ENT Exam: Mucous Membranes Moist - Respiratory Exam Respiratory Exam: Clear to PA & Lateral, NORMAL BREATHING PATTERN. absent: Chest Wall Tenderness, Rales, Rhonchi, Wheezes - Cardiovascular Exam Cardiovascular Exam: REGULAR RHYTHM, +S1, +S2. absent: Tachycardia - GI/Abdominal Exam GI & Abdominal Exam: Normal Bowel Sounds, Soft, Unremarkable. absent: Tenderness - Extremities Exam Extremities exam: normal capillary refill, normal inspection, pedal pulses present Additional comments: no calf tenderness, no pedal edema - Neurological Exam Neurological exam: Alert, Oriented x3 - Psychiatric Exam Psychiatric exam: Normal Affect, Normal Mood - Skin Skin Exam: Dry, Normal Color, Warm Discharge Plan - Follow Up Plan Condition: GOOD Disposition: HOME/ ROUTINE Instructions: Blood in the Urine (Hematuria), Adult (DC) Additional Instructions: Pt is medically stable for discharge home as per Dr. Ed Hermosillo. Pt has home prescriptions filled already, as below: Lipitor 10 mg PO once daily Lasix 20 mg PO once daily Carzidem 120 mg PO once daily Plavix 75 mg PO once daily Vasotec 20 mg PO once daily ASA 81 mg PO once daily Lamictal 200 mg PO twice daily Tradjenta 5 mg PO once daily Metformin 500 mg PO twice daily Please resume taking Metformin on , 10/17/18, morning with breakfast Omeprazole 40 mg PO once daily Please call Dr. Aguayo's office to obtain help to get earlier Urologist appointment. Please follow up with your Logistics Intern, Dr. Estrada, to go over the ec hocardiogram that was performed today. A per Dr. Whitehead's instruction make sure to follow up with Dr. Madrigal (Gastroenterology) and Dr. Gage Yu (Hematology/Oncology) Should symptoms worsen, please head to nearest Emergency Department for further evaluation. Instructions explained to the pt, who understands and agrees with discharg plan. Referrals: Nam Aguayo MD [Staff Provider] -
--- NOTE | 2018-10-15 16:55 | RAD ---
Date of service: 10/15/2018 PROCEDURE: CHEST RADIOGRAPH, 1 VIEW HISTORY: pre op COMPARISON: 06/08/2017 FINDINGS: LUNGS: Clear. PLEURA: No pneumothorax or pleural fluid seen. CARDIOVASCULAR: No aortic atherosclerotic calcification present. Cardiomegaly-similar possible concomitant minimal pulmonary venous congestion. This appears less now than before. Midline sternotomy and coronary artery bypass surgery noted. OSSEOUS STRUCTURES: Midline sternotomy. VISUALIZED UPPER ABDOMEN: Normal. OTHER FINDINGS: None. IMPRESSION: Cardiomegaly-similar. Postop changes similar.
--- NOTE | 2018-10-15 20:36 | CARD ---
APPROVED REPORT Date of service: 10/15/2018 EXAM: Two-dimensional and M-mode echocardiogram with Doppler and color Doppler. Other Information Quality : GoodRhythm : INDICATION Pre-Op Cardiac Disease: CAD Surgery/Intervention CABG: RISK FACTORS Hypertension Hyperlipidemia Diabetes 2D DIMENSIONS IVSd1.3 (0.7-1.1cm)LVDd6.1 (3.9-5.9cm) PWd0.8 (0.7-1.1cm)LA Shftmy99 (18-58mL) LVDs4.4 (2.5-4.0cm)FS (%) 28.0 % LVEF (%)50.0 (>50%)LVEF (Cormier's)51.04 % M-Mode DIMENSIONS Left Atrium (MM)4.62 (2.5-4.0cm)IVSd1.32 (0.7-1.1cm) Aortic Root3.58 (2.2-3.7cm)LVDd6.08 (4.0-5.6cm) Aortic Cusp Exc.2.09 (1.5-2.0cm)PWd1.23 (0.7-1.1cm) FS (%) 27 %LVDs4.44 (2.0-3.8cm) LVEF (%)52 (>50%) Mitral Valve MV E Qburcome95.2cm/sMV A Vguvojot99.7cm/sE/A ratio1.2 COWK711.42 cm/s TDI Lateral E' Peak V10.90cm/sMedial E' Peak V6.93cm/sE/Lateral E'8.1 E/Medial E'12.7 Tricuspid Valve TR Peak Iljpbuvt896rn/sTR Peak Gr.[id number] LEFT VENTRICLE The left ventricle is normal size. There is normal left ventricular wall thickness. The apical views are foreshortened, and left ventricualr systolic function is probably mildly reduced. Consider repeat echo with proper technique. No regional wall motion abnormalities noted. The left ventricular diastolic function is probably normal. No left ventricle thrombus noted on this study. There is no ventricular septal defect visualized. There is no left ventricular aneurysm. There is no mass noted in the left ventricle. RIGHT VENTRICLE The right ventricle is normal size. There is normal right ventricular wall thickness. The right ventricular systolic function is normal. ATRIA The left atria volume index is moderately increased. The right atrium size is normal. The interatrial septum is intact with no evidence for an atrial septal defect. AORTIC VALVE The aortic valve is normal in structure and function. No aortic regurgitation is present. There is no aortic valvular stenosis. There is no aortic valvular vegetation. MITRAL VALVE The mitral valve is normal in structure and function. There is no evidence of mitral valve prolapse. There is no mitral valve stenosis. There is a jet of ecentric at least moderate mitral valve regurgitation noted. TRICUSPID VALVE The tricuspid valve is normal in structure and function. There is mild tricuspid valve regurgitation noted. There is no tricuspid valve prolapse or vegetation. There is no tricuspid valve stenosis. PULMONIC VALVE The pulmonary valve is normal in structure and function. There is no pulmonic valvular regurgitation. There is no pulmonic valvular stenosis. GREAT VESSELS The aortic root is normal in size. The ascending aorta is normal in size. The pulmonary artery is normal. The IVC is normal in size and collapses >50% with inspiration. PERICARDIAL EFFUSION The pericardium appears normal. There is no pleural effusion. <Conclusion> The apical views are foreshortened, and left ventricualr systolic function is probably mildly reduced. Consider repeat echo with proper technique. The left atrial volume index is moderately increased. There is a jet of ecentric at least moderate mitral valve regurgitation noted.
== END 2018-10-15 13:58 | disposition home or self-care (01) ==
LOC: C.ER 11:35 → C.9E 18:52 → C.3T 22:26
PROVIDERS: ADMIT Internal Medicine; ATTEND Internal Medicine
DX: I25.10 Atherosclerotic heart disease of native coronary artery without angina pectoris (principal); I11.9 Hypertensive heart disease without heart failure; G47.30 Sleep apnea, unspecified; E78.5 Hyperlipidemia, unspecified; E11.9 Type 2 diabetes mellitus without complications; N40.1 Benign prostatic hyperplasia with lower urinary tract symptoms
CPT/HCPCS: 36415; 71045; 74178; 80053; 81001; 82948; 85025; 85610; 85730; 87086; 93306; 99285; G0378; Q9967

== ENCOUNTER 2018-11-24 14:42 | Emergency (ER) | payer OTHER ==
[2018-11-24 16:05] VITALS: BMI 31.1
[2018-11-24 16:39] LABS: BASO # 0.1 K/uL (0.0-0.2); BASO % 0.9 % (0.0-2.0); EOS # 0.2 K/uL (0.0-0.7); EOS % 2.6 % (0.0-4.0); HEMOGLOBIN 12.8 g/dL (12.0-18.0); LYMPH # 1.2 K/uL (1.0-4.3); LYMPH % 15.1 % (20.0-40.0); MEAN CELL VOLUME 93.2 fL (80.0-94.0); MEAN CORPUSCULAR HEMOGLOBIN 31.3 pg (27.0-31.0); MEAN CORPUSCULAR HGB CONC 33.6 g/dL (33.0-37.0); MEAN PLATELET VOLUME 8.1 fL (7.2-11.7); MONO # 0.7 K/uL (0.0-0.8); MONO % 8.3 % (0.0-10.0); NEUT # 5.8 K/uL (1.8-7.0); NEUT % 73.1 % (50.0-75.0); RBC 4.1 Mil/uL (4.40-5.90); RED CELL DISTRIBUTION WIDTH 13.5 % (11.5-14.5); WHITE BLOOD COUNT 7.9 K/uL (4.8-10.8)
[2018-11-24 17:15] LABS: ALB/GLOB RATIO 1.1 (1.0-2.1); ALBUMIN 4.2 g/dL (3.5-5.0); ALT/SGPT 28 U/L (21-72); AST/SGOT 49 U/L (17-59); BLOOD UREA NITROGEN 17 mg/dL (9-20); CALCIUM 9.4 mg/dl (8.6-10.4); GFR NON-AFRICAN AMERICAN > 60
[2018-11-24 17:24] VITALS: O2SAT 100
--- NOTE | 2018-11-24 17:33 | C.PDOC ---
History Of Present Illness 59 year old male with PMHx of CAD s/p CABG 4 years ago presents to the ED complaining of generalized bodyaches since yesterday. Reports musculoskeletal type of pain all over his body. States he took Ibuprofen with pain improvement except his shoulder pain, primarily his right shoulder. Notes his right shoulder feels swollen. Denies any fever, chills, nausea, vomiting, or shortness of breath. Denies any trauma or significant exertion. Also states he had a prostate biopsy 5 days ago and is following up with Urologist next week. Time Seen by Provider: 11/24/18 15:36 Chief Complaint (Nursing): Weakness/Neurological Deficit History Per: Patient History/Exam Limitations: no limitations Onset/Duration Of Symptoms: Days (1) Current Symptoms Are (Timing): Still Present Fall Associated With With Symptoms: No Past Medical History Reviewed: Historical Data, Nursing Documentation, Vital Signs Vital Signs: Last Vital Signs Temp Pulse 66 11/24/18 16:30 Resp 20 11/24/18 16:30 BP 134/83 11/24/18 16:30 Pulse Ox 100 11/24/18 16:30 Primary Care Provider: Nam Aguayo - Medical History PMH: Diabetes, HTN, Hypercholesterolemia, Peripheral Edema, Seizures (does not remember), Sleep Apnea Denies: Colonic Polyps, Chronic Kidney Disease Surgical History: CABG Other Surgeries: hx of surgeries Family History: States: No Known Family Hx - Social History Hx Alcohol Use: Yes Hx Substance Use: No - Immunization History Hx Tetanus Toxoid Vaccination: No Hx Influenza Vaccination: Yes Hx Pneumococcal Vaccination: Yes Review Of Systems Except As Marked, All Systems Reviewed And Found Negative. Constitutional: Positive for: Other (generalized bodyaches ). Negative for: Fever, Chills Respiratory: Negative for: Shortness of Breath Gastrointestinal: Negative for: Nausea, Vomiting, Diarrhea, Constipation Musculoskeletal: Positive for: Shoulder Pain Physical Exam - Physical Exam Appears: Non-toxic, No Acute Distress, Other (afebrile, vitals WTN, cooperative, calm, able to answer questions, indwelling proctor catheter with leg bag ) Skin: Warm, Dry, Rash Head: Atraumatic, Normacephalic Eye(s): bilateral: Normal Inspection, PERRL, EOMI Nose: Normal Oral Mucosa: Moist Neck: Supple Chest: Symmetrical, No Tenderness Cardiovascular: Rhythm Regular Respiratory: Normal Breath Sounds, No Rales, No Rhonchi, No Wheezing Gastrointestinal/Abdominal: Soft, No Tenderness, No Guarding, No Rebound Extremity: Normal ROM, Tenderness (tender to palpation to B/L anterior shoulders, right significantly more than left ), Capillary Refill (less than 2 sec to b/l shoulders ), No Deformity, No Swelling Extremity: Bilateral: Atraumatic, Normal Color And Temperature, Normal ROM Pulses: Left Radial: Normal, Right Radial: Normal Neurological/Psych: Oriented x3, Normal Speech, Normal Cognition, Normal Cranial Nerves, Normal Motor, Normal Sensation Gait: Steady ED Course And Treatment - Laboratory Results Result Diagrams: 11/24/18 16:33 11/24/18 16:33 Lab Results: Troponin I 0.0300 ng/mL (0.00-0.120) 11/24/18 16:33 Total Bilirubin 0.4 mg/dL (0.2-1.3) 11/24/18 16:33 AST 49 U/L (17-59) 11/24/18 16:33 ALT 28 U/L (21-72) 11/24/18 16:33 Alkaline Phosphatase 188 U/L (38-126) H D 11/24/18 16:33 Total Protein 7.9 g/dL (6.3-8.3) 11/24/18 16:33 Albumin 4.2 g/dL (3.5-5.0) 11/24/18 16:33 Globulin 3.7 gm/dL (2.2-3.9) 11/24/18 16:33 Albumin/Globulin Ratio 1.1 (1.0-2.1) 11/24/18 16:33 ECG: Interpreted By Me, Viewed By Me ECG Rhythm: Sinus Rhythm Interpretation Of ECG: Nonspecific intraventricular block consistent with prior EKG Rate From EC O2 Sat by Pulse Oximetry: 100 (RA) Pulse Ox Interpretation: Normal Medical Decision Making Medical Decision Making: Plan - EKG - Bloodwork - Tylenol 975mg O - Motrin 600mg PO - XR right shoulder XR of right shoulder is unremarkable as viewed by me. On reevaluation, pt reports feeling better. Disposition Counseled Patient/Family Regarding: Need For Followup, Rx Given - Disposition Referrals: Nam Aguayo MD [Staff Provider] - Disposition: HOME/ ROUTINE Disposition Time: 17:37 Condition: IMPROVED Prescriptions: Acetaminophen [Tylenol Extra Strength] 500 mg PO TID #15 tablet Ibuprofen [Motrin] 600 mg PO TID #15 tab Instructions: Muscle and Bone Pain (DC) Forms: [facility] (Tunisian), Gen Discharge Inst Tunisian - POA Present On Arrival: None - Clinical Impression Clinical Impression: Musculoskeletal pain - Scribe Statement The provider has reviewed the documentation as recorded by the Scribe Maggie Harrison All medical record entries made by the Jasonibjamila were at my direction and personally dictated by me. I have reviewed the chart and agree that the record accurately reflects my personal performance of the history, physical exam, medical decision making, and the department course for this patient. I have also personally directed, reviewed, and agree with the discharge instructions and disposition.
--- NOTE | 2018-11-24 18:07 | RAD ---
Date of service: 11/24/2018 PROCEDURE: Radiographs of the Right Shoulder HISTORY: Pain COMPARISON: No prior. TECHNIQUE: 3 views obtained. 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 SOFT TISSUES: Normal. OTHER FINDINGS: None. IMPRESSION: No evidence of acute displaced fracture nor dislocation. 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
[2018-11-24 18:08] VITALS: BP 134/81; PULSE 68; RESP 18; TEMP 98.1
--- NOTE | 2018-11-25 17:49 | CARD ---
APPROVED REPORT Date of service: 11/24/2018 EKG Measurement Heart [id number] <Conclusion> Sinus rhythm with 1st degree AV block Inferior infarct, age undetermined ST & T wave abnormality, consider lateral ischemia Abnormal ECG
--- NOTE | 2018-11-25 17:50 | CARD ---
APPROVED REPORT Date of service: 11/24/2018 EKG Measurement Heart [id number] <Conclusion> Sinus rhythm with 1st degree AV block Nonspecific intraventricular block Inferior infarct, age undetermined T wave abnormality, consider lateral ischemia Abnormal ECG
== END 2018-11-24 18:07 | disposition home or self-care (01) ==
LOC: C.ER 14:42
DX: M79.18 Myalgia, other site (principal)